=== PATIENT | female | born 1995 | race Caucasian/White ===

== ENCOUNTER 2016-10-13 15:57 | Emergency (ER) | payer OTHER ==
[~2016-10-13] VITALS: Ht 165.1 cm; Wt 70.0 kg
[~2016-10-13 15:57] MED LIST: AMOX875T PO; DIPH25CA PO; HYDR1CRE TOPICAL; IBUP-232 PO; LIDO2GEL11 TOPICAL; ZOFR4TAB3 SL
[2016-10-13 15:59] VITALS: BP 114/69; PULSE 72; RESP 16; TEMP 97.7; O2SAT 97
[2016-10-13] MEDS ORDERED: CEPH-460 PO (18:05)
[2016-10-13] MEDS ORDERED: CIPR-9 PO (18:05)
[2016-10-13] MEDS ORDERED: IBUP800T23 PO (18:05)
--- NOTE | 2016-10-13 18:06 | PD ---
HPI Chief Complaint: Skin Problem Time Seen by Provider: 18:01 Travel History International Travel<30 days: No Contact w/Intl Traveler<30days: No Traveled to known affect area: No History of Present Illness HPI 21-year-old female presents to the emergency Department with complaint of a puncture wound to the bottom of her left heel from stepping on a nail through her shoe a few days ago. She denies fever, chills, nausea, vomiting. Denies paresthesias, loss of sensation, decreased range of motion, decreased strength to the affected extremity. Reports being able to squeeze right drainage from the puncture area. Is not up-to-date on her tetanus vaccination. Has not Taken any medications or tried any treatments to be her symptoms. No known relieving factors. Area is aggravated with walking and palpation. No known allergies. Denies significant past medical history. No other modifying factors or associated signs and symptoms. PFSH Past Medical History Anxiety: Yes Depression: Yes Diabetes: No Diminished Hearing: No Reproductive: Yes (HPV) Immunizations Current: No ?: Not : 1 Para: 1 Miscarriage: 0 Past Surgical History Gynecologic Surgery: Yes (LEEP IUD REMOVED ) Social History Alcohol Use: Yes Tobacco Use: No Substance Use: No Allergies-Medications (Allergen,Severity, Reaction): Coded Allergies: No Known Allergies (Verified , 09/09/16) Reported Meds & Prescriptions Reported Meds & Active Scripts Active Ibuprofen 800 Mg Tab 800 Mg PO Q6HR PRN Cipro (Ciprofloxacin HCl) 500 Mg Tab 500 Mg PO BID 10 Days Keflex (Cephalexin) 500 Mg Cap 500 Mg PO Q6H 10 Days Lidocaine Topical (Lidocaine HCl) 2 % Jel 1 Applic TOPICAL QID Ibuprofen 600 Mg Tab 600 Mg PO Q6H PRN Diphenhydramine (Diphenhydramine HCl) 25 Mg Cap 25 Mg PO Q6H PRN Hydrocortisone Topical 1% Cream 1 Applic TOPICAL BID 5 Days Amoxicillin 875 Mg Tab 875 Mg PO BID Zofran Odt (Ondansetron Odt) 4 Mg Tab 4 Mg SL Q8HR PRN Review of Systems Except as stated in HPI: all other systems reviewed are Neg Physical Exam Narrative GENERAL: Well-nourished, well-developed female patient, in no acute distress; afebrile, [id number] SKIN: Warm and dry. Puncture wound to the bottom of the left heel area that is without erythema, edema, drainage; with tenderness on palpation. Left lower sternal area supple and non-tense with 2+ pedal pulse and sensory intact without erythema or edema. HEAD: Atraumatic. Normocephalic. EYES: Pupils equal and round. No scleral icterus. No injection or drainage. ENT: Mucosa pink and moist. Airway patent. NECK: Trachea midline. CARDIOVASCULAR: Regular rate. RESPIRATORY: No accessory muscle use. GASTROINTESTINAL: Flat. MUSCULOSKELETAL: No obvious deformities. No clubbing. No cyanosis. No edema. NEUROLOGICAL: Awake and alert. Oriented 3. No obvious cranial nerve deficits. Motor grossly within normal limits. Normal speech. PSYCHIATRIC: Appropriate mood and affect; insight and judgment normal. Data Data Last Documented VS Vital Signs Date Time Temp Pulse Resp B/P Pulse Ox O2 Delivery O2 Flow Rate FiO2 10/13/16 15:59 97.7 72 16 114/69 97 Room Air Orders Tetanus/Diphtheria Tox Adult (Tetanus/Di (10/13/16 18:15) MDM Medical Decision Making Medical Screen Exam Complete: Yes Emergency Medical Condition: Yes Medical Record Reviewed: Yes Differential Diagnosis Puncture wound, wound infection, medical clearance, tetanus vaccination Narrative Course 21-year-old female with a puncture wound from a nail to the bottom of her left heel. The areas without signs of infection although the patient says that she has been able to squeeze some purulent drainage from the site. Tetanus updated in the ER. Keflex, ciprofloxacin, ibuprofen prescribed for home. Patient is medically cleared and stable for discharge. Discussed reasons to return to the emergency department. Instructed patient to follow up with primary care provider. Patient agrees with treatment plan. The patients vital signs are stable and the patient is stable for outpatient follow-up and treatment. Patient discharged home, stable and in no acute distress. Diagnosis Primary Impression: Puncture wound of left foot Qualified Code: S91.332A - Puncture wound of left foot, initial encounter Referrals: Primary Care Physician Patient Instructions: General Instructions, Puncture Wound (ED) Departure Forms: Tests/Procedures, Work Release Enter return to work date: Oct 14, 2016 Additional Instructions: Keep area clean and dry Ibuprofen or Tylenol as directed and as needed for pain and inflammation Ice pack to area as needed to decrease pain Follow-up with primary care provider Return to the emergency department immediately with worsening of symptoms, particularly if reddened streaks up or down the affected extremity from the puncture site, fever, numbness/tingling in the affected extremity, loss of sensation in the affected extremity, severe swelling of the affected Med/Other Pt SpecificInfo: Prescription(s) given Scripts Ibuprofen 800 Mg [id number] Mg PO Q6HR PRN (PAIN) #30 TAB Ref 0 Prov:Ivanna Barillas 10/13/16 Ciprofloxacin (Cipro)500 Mg [id number] Mg PO BID 10 Days Ref 0 Prov:Ivanna Barillas 10/13/16 Cephalexin (Keflex)500 Mg [id number] Mg PO Q6H 10 Days Ref 0 Prov:Ivanna Barillas 10/13/16 Disposition: 01 DISCHARGE HOME Condition: Stable Ivanna Barillas Oct 13, 2016 18:06
[2016-10-13] MEDS ORDERED: TETANUS/DIPHTHERIA TOXOID ADULT 0.5 ML VIAL IM ONE (18:15)
== END 2016-10-13 18:30 | disposition home or self-care (01) ==
LOC: NEPB 15:57
DX: S91.332A Puncture wound without foreign body, left foot, initial encounter (principal); W45.0XXA Nail entering through skin, initial encounter; Z23 Encounter for immunization
CPT/HCPCS: 90471; 90714

== ENCOUNTER 2017-01-26 22:58 | Emergency (ER) | payer OTHER ==
[~2017-01-26] VITALS: Ht 165.1 cm; Wt 66.0 kg
[~2017-01-26 22:58] MED LIST changes: +CEPH-460 PO; +CIPR-9 PO; +IBUP800T23 PO
[2017-01-26 23:05] VITALS: BP 107/69; PULSE 73; RESP 14; TEMP 98.2; O2SAT 98
--- NOTE | 2017-01-26 23:43 | PD ---
HPI Chief Complaint: Chest Pain Time Seen by Provider: 23:31 Travel History International Travel<30 days: No Contact w/Intl Traveler<30days: No Traveled to known affect area: No History of Present Illness HPI The patient is a 21-year-old female that complains of chest pain in the anterior portion of her chest along the costochondral junctions and along the rib attachments bilaterally. She has a cough productive of green sputum. She denies any fever or shortness of breath. She states there is a possibility that she might be . She does not smoke. PFSH Past Medical History Anxiety: Yes Depression: Yes Diabetes: No Diminished Hearing: No Reproductive: Yes (HPV) Immunizations Current: No Tetanus Vaccination: Never Vaccinated ?: Unknown LMP: on it now : 1 Para: 1 Miscarriage: 0 Past Surgical History Gynecologic Surgery: Yes (LEEP IUD REMOVED ) Social History Alcohol Use: Yes (occ) Tobacco Use: No Substance Use: No Allergies-Medications (Allergen,Severity, Reaction): Coded Allergies: No Known Allergies (Verified , 01/26/17) Reported Meds & Prescriptions Reported Meds & Active Scripts Active No Active Prescriptions or Reported Medications Review of Systems Except as stated in HPI: all other systems reviewed are Neg Physical Exam Narrative GENERAL: The patient is alert, oriented 3 in no respiratory distress. Her vital signs are normal. SKIN: Focused skin assessment warm/dry. HEAD: Atraumatic. Normocephalic. EYES: Pupils equal and round. No scleral icterus. No injection or drainage. ENT: No nasal bleeding or discharge. Mucous membranes pink and moist. NECK: Trachea midline. No JVD. CARDIOVASCULAR: Regular rate and rhythm. No murmur appreciated. RESPIRATORY: No accessory muscle use. Clear to auscultation. Breath sounds equal bilaterally. GASTROINTESTINAL: Abdomen soft, non-tender, nondistended. Hepatic and splenic margins not palpable. MUSCULOSKELETAL: No obvious deformities. No clubbing. No cyanosis. No edema. NEUROLOGICAL: Awake and alert. No obvious cranial nerve deficits. Motor grossly within normal limits. Normal speech. PSYCHIATRIC: Appropriate mood and affect; insight and judgment normal. Data Data Last Documented VS Vital Signs Date Time Temp Pulse Resp B/P Pulse Ox O2 Delivery O2 Flow Rate FiO2 01/26/17 23:17 99 Room Air 01/26/17 23:05 98.2 73 14 107/69 Orders Complete Blood Count With Diff (01/26/17 23:38) Basic Metabolic Panel (Bmp) (01/26/17 23:38) Beta Hcg (Quant/Titer) (01/26/17 23:38) Chest, Pa & Lat (01/26/17 23:38) Labs Laboratory Tests Test 01/26/17 23:15 White Blood Count 7.9 TH/MM3 Red Blood Count 4.21 MIL/MM3 Hemoglobin 13.3 GM/DL Hematocrit 38.8 % Mean Corpuscular Volume 92.3 FL Mean Corpuscular Hemoglobin 31.6 PG Mean Corpuscular Hemoglobin 34.2 % Concent Red Cell Distribution Width 11.9 % Platelet Count 192 TH/MM3 Mean Platelet Volume 8.3 FL Neutrophils (%) (Auto) 69.8 % Lymphocytes (%) (Auto) 23.1 % Monocytes (%) (Auto) 6.0 % Eosinophils (%) (Auto) 0.6 % Basophils (%) (Auto) 0.5 % Neutrophils # (Auto) 5.6 TH/MM3 Lymphocytes # (Auto) 1.8 TH/MM3 Monocytes # (Auto) 0.5 TH/MM3 Eosinophils # (Auto) 0.0 TH/MM3 Basophils # (Auto) 0.0 TH/MM3 CBC Comment DIFF FINAL Differential Comment Sodium Level 142 MEQ/L Potassium Level 3.5 MEQ/L Chloride Level 108 MEQ/L Carbon Dioxide Level 25.9 MEQ/L Anion Gap 8 MEQ/L Blood Urea Nitrogen 14 MG/DL Creatinine 0.53 MG/DL Estimat Glomerular Filtration 143 ML/MIN Rate Random Glucose 96 MG/DL Calcium Level 8.7 MG/DL Human Chorionic Gonadotropin, LESS THAN 1 Quant MIU/ML MDM Medical Decision Making Medical Screen Exam Complete: Yes Emergency Medical Condition: Yes Medical Record Reviewed: Yes Interpretation(s) The CBC is normal and the basic metabolic profile is normal. The beta-hCG is less than 1. The chest x-ray shows no acute disease. Differential Diagnosis Viral upper respiratory infection, , bronchitis, pneumonia Narrative Course The patient has a viral upper respiratory infection. She has pleuritic pain when she breathes/coughs. Impression: Viral upper respiratory infection, pleurisy Diagnosis Primary Impression: Pleurisy without effusion Med/Other Pt SpecificInfo: Prescription(s) given Scripts Ibuprofen 600 Mg [id number] Mg PO TID #33 TAB Ref 0 Prov:David Palma MD 01/27/17 Disposition: 01 DISCHARGE HOME Condition: Stable David Palma MD January 26, 2017 23:43
[2017-01-27 00:02] LABS: AUTOMATED NEUTROPHIL # 5.6 TH/MM3 (1.8-7.7); BASOPHIL % 0.5 % (0.0-2.0); EOSINOPHIL % 0.6 % (0.0-4.0); HEMATOCRIT 38.8 % (35.0-46.0); HEMO FLAGS DIFF FINAL; LYMPH % 23.1 % (9.0-44.0); LYMPHOCYTE # 1.8 TH/MM3 (1.0-4.8); MEAN CELL VOLUME 92.3 FL (80.0-100.0); MEAN CORPUSCULAR HEMOGLOBIN 31.6 PG (27.0-34.0); MEAN CORPUSCULAR HGB CONC 34.2 % (32.0-36.0); NEUT % 69.8 % (16.0-70.0); PLATELET COUNT 192 TH/MM3 (150-450); RED BLOOD COUNT 4.21 MIL/MM3 (4.00-5.30); RED CELL DISTRIBUTION WIDTH 11.9 % (11.6-17.2); WHITE BLOOD COUNT 7.9 TH/MM3 (4.0-11.0)
[2017-01-27 00:21] LABS: CHLORIDE 108 MEQ/L (98-107); POTASSIUM 3.5 MEQ/L (3.5-5.1); SODIUM (NA) 142 MEQ/L (136-145)
[2017-01-27 00:24] LABS: ANION GAP 8 MEQ/L (5-15); BICARBONATE 25.9 MEQ/L (21.0-32.0); BLOOD UREA NITROGEN 14 MG/DL (7-18)
[2017-01-27 00:28] LABS: GLOMERULAR FILTRATION RATE 143 ML/MIN (>89)
[2017-01-27 00:32] LABS: BETA HCG QUANT LESS THAN 1 MIU/ML (0-5)
--- NOTE | 2017-01-27 00:36 | RADHPO ---
EXAM DATE/TIME: 01/27/2017 00:16 [facility] COMPARISON: No previous studies available for comparison. INDICATIONS : Chest pain for several days. MEDICAL HISTORY : None. SURGICAL HISTORY : None. ENCOUNTER: Initial ACUITY: 4 - 6 days PAIN SCORE: 6/10 LOCATION: Bilateral chest FINDINGS: PA and lateral views of the chest demonstrate the lungs to be symmetrically aerated without evidence of mass, infiltrate or effusion. The cardiomediastinal contours are unremarkable. Osseous structure s are intact. CONCLUSION: No acute disease. oJe Dickens MD on January 27, 2017 at 0:34 Board Certified Radiologist. This report was verified electronically.
[2017-01-27 00:40] VITALS: BP 110/66; PULSE 70; RESP 18; O2SAT 98
[2017-01-27] MEDS ORDERED: IBUP-232 PO (00:54)
[2017-01-27] MEDS ORDERED: IBUPROFEN 600 MG TAB PO ONE (01:00)
[2017-01-27 01:02] VITALS: BP 106/68
== END 2017-01-27 01:08 | disposition home or self-care (01) ==
LOC: PHED 22:58
DX: R09.1 Pleurisy (principal); J06.9 Acute upper respiratory infection, unspecified; B97.89 Other viral agents as the cause of diseases classified elsewhere; R09.3 Abnormal sputum; Z86.59 Personal history of other mental and behavioral disorders; Z87.42 Personal history of other diseases of the female genital tract
CPT/HCPCS: 71020; 80048; 84702; 85025; 99283

== ENCOUNTER 2017-07-07 10:48 | Emergency (ER) | payer OTHER ==
[~2017-07-07] VITALS: Ht 165.1 cm; Wt 66.0 kg
[~2017-07-07 10:48] MED LIST changes: -AMOX875T PO; -CEPH-460 PO; -CIPR-9 PO; -DIPH25CA PO; -HYDR1CRE TOPICAL; -IBUP800T23 PO; -LIDO2GEL11 TOPICAL; -ZOFR4TAB3 SL
[2017-07-07 10:49] VITALS: BP 116/66; PULSE 67; RESP 16; TEMP 98.7; O2SAT 99
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
[2017-07-07] MEDS ORDERED: diphenhydrAMINE HCL 50 MG/ML VIAL IV PUSH ONE (12:30)
[2017-07-07] MEDS ORDERED: METOCLOPRAMIDE HCL 10 MG/2 ML VIAL IV PUSH ONE (12:30)
[2017-07-07] MEDS ORDERED: SODIUM CHLOR 0.9% 1000 ML INJ 1,000 ML IV ONE (12:30)
[2017-07-07] MEDS ORDERED: KETOROLAC TROMETHAMINE 30 MG/ML (IVP) VIAL IV PUSH ONE (12:30)
[2017-07-07 12:39] VITALS: BP 93/55; PULSE 82; RESP 18; O2SAT 100
== END 2017-07-07 14:45 | disposition home or self-care (01) ==
LOC: NEPE 10:48
DX: R51 Headache (principal)
CPT/HCPCS: 84703; 96361; 96374; 96375; 99284; J1200; J1885; J2765; J7030

== ENCOUNTER 2017-08-05 11:00 | Emergency (ER) | payer OTHER ==
[~2017-08-05] VITALS: Ht 165.1 cm; Wt 68.1 kg
[2017-08-05 11:02] VITALS: BP 122/66; PULSE 80; RESP 16; TEMP 98.5; O2SAT 99
[2017-08-05 11:54] VITALS: BP 115/67; PULSE 82; RESP 17; O2SAT 97
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
[2017-08-05 13:10] VITALS: BP 109/62; PULSE 74; RESP 17; TEMP 98.6; O2SAT 97
== END 2017-08-05 14:10 | disposition home or self-care (01) ==
LOC: PHED 11:00
DX: S16.1XXA Strain of muscle, fascia and tendon at neck level, initial encounter (principal); S06.0X0A Concussion without loss of consciousness, initial encounter; X58.XXXA Exposure to other specified factors, initial encounter
CPT/HCPCS: 70450; 72125; 84703; 99285

== ENCOUNTER 2017-08-27 17:31 | Emergency (ER) | payer OTHER ==
[2017-08-27 17:32] VITALS: BP 123/61; PULSE 83; RESP 16; TEMP 98.7; O2SAT 100
--- NOTE | 2017-08-27 18:35 | PD ---
HPI Chief Complaint: Abdominal Pain Time Seen by Provider: 18:17 Travel History International Travel<30 days: No Contact w/Intl Traveler<30days: No Traveled to known affect area: No History of Present Illness HPI The patient was seen and examined in the presence of the nurse. This patient complains of some pelvic cramping. It happened while she was shopping at a store about one hour ago. The pain has resolved. Duration 30 minutes. Severity was moderate. No alleviating factors. No exacerbating factors. She reports that she is . This is confirmed by a home test as well as a test at the crisis center. She has not had any ultrasound. She has not had any follow-up but has an appointment in 2 weeks. No bleeding. PFSH Past Medical History Anxiety: Yes Depression: Yes Diabetes: No Diminished Hearing: No Reproductive: Yes (HPV) Immunizations Current: No ?: LMP: 07/19/2017 : 2 Para: 1 Miscarriage: 0 Past Surgical History Gynecologic Surgery: Yes (LEEP IUD REMOVED; criosurgery(cervix)) Social History Alcohol Use: Yes (occ) Tobacco Use: No Substance Use: No Allergies-Medications (Allergen,Severity, Reaction): Coded Allergies: No Known Allergies (Verified Adverse Reaction, Unknown, 08/05/17) Reported Meds & Prescriptions Reported Meds & Active Scripts Active No Active Prescriptions or Reported Medications Review of Systems General / Constitutional: No: Fever Eyes: No: Visual changes HENT: No: Headaches Cardiovascular: No: Chest Pain or Discomfort Respiratory: No: Shortness of Breath Gastrointestinal: Positive: Abdominal Pain Genitourinary: Positive: Pelvic Pain, No: Dysuria Musculoskeletal: No: Pain Skin: No Rash Neurologic: No: Weakness Psychiatric: No: Depression Endocrine: No: Polydipsia Hematologic/Lymphatic: No: Easy Bruising Physical Exam Narrative GENERAL: Well-nourished, well-developed patient in no apparent distress. SKIN: Focused skin assessment reveals no rash and nodules. Skin is Warm and dry. HEAD: Atraumatic. Normocephalic. EYES: Pupils equal and round. No scleral icterus. No injection or drainage. ENT: No nasal bleeding or discharge. Mucous membranes pink and moist. NECK: Trachea midline. No JVD. CARDIOVASCULAR: Regular rate and rhythm. No murmur appreciated. RESPIRATORY: No accessory muscle use. Clear to auscultation. Breath sounds equal bilaterally. GASTROINTESTINAL: Abdomen soft, non-tender, nondistended. Hepatic and splenic margins not palpable. MUSCULOSKELETAL: No obvious deformities. No clubbing. No cyanosis. No edema. NEUROLOGICAL: Awake and alert. No obvious cranial nerve deficits. Motor grossly within normal limits. Normal speech. PSYCHIATRIC: Appropriate mood and affect; insight and judgment normal. Pelvic: Cervix is closed with no motion tenderness. No blood or discharge in the vault Data Data Last Documented VS Vital Signs Date Time Temp Pulse Resp B/P (MAP) Pulse Ox O2 Delivery O2 Flow Rate FiO2 08/27/17 18:24 16 08/27/17 17:32 98.7 83 123/61 (81) 100 Orders Orders Complete Blood Count With Diff (08/27/17 17:49) Comprehensive Metabolic Panel (08/27/17 17:49) Beta Hcg (Quant/Titer) (08/27/17 18:31) Ed Discharge Order (08/27/17 20:16) Labs Laboratory Tests Test 08/27/17 18:05 08/27/17 18:40 White Blood Count 7.0 TH/MM3 Red Blood Count 4.15 MIL/MM3 Hemoglobin 13.6 GM/DL Hematocrit 38.7 % Mean Corpuscular Volume 93.3 FL Mean Corpuscular Hemoglobin 32.8 PG Mean Corpuscular Hemoglobin Concent 35.2 % Red Cell Distribution Width 12.5 % Platelet Count 219 TH/MM3 Mean Platelet Volume 8.2 FL Neutrophils (%) (Auto) 67.3 % Lymphocytes (%) (Auto) 25.6 % Monocytes (%) (Auto) 5.8 % Eosinophils (%) (Auto) 0.7 % Basophils (%) (Auto) 0.6 % Neutrophils # (Auto) 4.7 TH/MM3 Lymphocytes # (Auto) 1.8 TH/MM3 Monocytes # (Auto) 0.4 TH/MM3 Eosinophils # (Auto) 0.0 TH/MM3 Basophils # (Auto) 0.0 TH/MM3 CBC Comment DIFF FINAL Differential Comment Blood Urea Nitrogen 12 MG/DL Creatinine 0.47 MG/DL Random Glucose 100 MG/DL Total Protein 7.7 GM/DL Albumin 4.0 GM/DL Calcium Level 8.5 MG/DL Alkaline Phosphatase 54 U/L Aspartate Amino Transf (AST/SGOT) 13 U/L Alanine Aminotransferase (ALT/SGPT) 18 U/L Total Bilirubin 0.2 MG/DL Sodium Level 141 MEQ/L Potassium Level 3.4 MEQ/L Chloride Level 108 MEQ/L Carbon Dioxide Level 24.6 MEQ/L Anion Gap 8 MEQ/L Estimat Glomerular Filtration Rate 163 ML/MIN Human Chorionic Gonadotropin, Quant 415 MIU/ML MDM Medical Decision Making Medical Screen Exam Complete: Yes Emergency Medical Condition: Yes Medical Record Reviewed: Yes Differential Diagnosis Ectopic, miscarriage, nonspecific pelvic cramping Narrative Course I have reviewed the patient's electronic medical record. CBC is normal Beta hCG is 400 I did a bedside transabdominal ultrasound. I cannot identify an intrauterine fetus. Had a lengthy discussion with the patient. She has appointment for care in a couple of weeks. I've advised her to call that OB physician tomorrow and see if they will see her in the next 2-3 days for repeat beta hCG and evaluation. If they will not then she will have to come back here for repeat beta in 3 days to ensure that is doubled properly. She may be having a miscarriage. We discussed that we cannot rule out ectopic based on this. I have low clinical suspicion at this point. She has soft benign nontender abdomen and is basically asymptomatic If she develops worse pain or bleeding she will return promptly We discussed pelvic rest and ectopic precautions at length Diagnosis Primary Impression: Pelvic pain affecting in first trimester, antepartum Additional Instructions: Use pelvic rest and ectopic precautions Return for significant worsening of pain or bleeding Follow-up with OB physician Return here in 3 days for follow-up beta hCG if your physician will not see you Med/Other Pt SpecificInfo: Other Scripts No Active Prescriptions or Reported Meds Disposition: DISCHARGE HOME Condition: Stable Milton Santana MD Aug 27, 2017 18:35
[2017-08-27 18:40] LABS: AUTOMATED NEUTROPHIL # 4.7 TH/MM3 (1.8-7.7); BASOPHIL % 0.6 % (0.0-2.0); EOSINOPHIL % 0.7 % (0.0-4.0); HEMATOCRIT 38.7 % (35.0-46.0); HEMO FLAGS DIFF FINAL; LYMPH % 25.6 % (9.0-44.0); LYMPHOCYTE # 1.8 TH/MM3 (1.0-4.8); MEAN CELL VOLUME 93.3 FL (80.0-100.0); MEAN CORPUSCULAR HEMOGLOBIN 32.8 PG (27.0-34.0); MEAN CORPUSCULAR HGB CONC 35.2 % (32.0-36.0); MONO % 5.8 % (0.0-8.0); NEUT % 67.3 % (16.0-70.0); PLATELET COUNT 219 TH/MM3 (150-450); RED BLOOD COUNT 4.15 MIL/MM3 (4.00-5.30); RED CELL DISTRIBUTION WIDTH 12.5 % (11.6-17.2)
[2017-08-27 18:58] LABS: ANION GAP 8 MEQ/L (5-15); AST (GOT) 13 U/L (15-37); BICARBONATE 24.6 MEQ/L (21.0-32.0); BLOOD UREA NITROGEN 12 MG/DL (7-18); CHLORIDE 108 MEQ/L (98-107); GLOMERULAR FILTRATION RATE 163 ML/MIN (>89); POTASSIUM 3.4 MEQ/L (3.5-5.1); SODIUM (NA) 141 MEQ/L (136-145)
[2017-08-27 19:01] LABS: ALKALINE PHOSPHATASE 54 U/L (45-117); ALT (GPT) 18 U/L (10-53); TOTAL BILIRUBIN ADULT 0.2 MG/DL (0.2-1.0)
[2017-08-27 19:26] LABS: BETA HCG QUANT 415 MIU/ML (0-5)
== END 2017-08-27 21:45 | disposition home or self-care (01) ==
LOC: NEPD 17:31
DX: O26.891 Other specified pregnancy related conditions, first trimester (principal); R10.2 Pelvic and perineal pain; O99.341 Other mental disorders complicating pregnancy, first trimester; F41.9 Anxiety disorder, unspecified; F32.9 Major depressive disorder, single episode, unspecified
CPT/HCPCS: 80053; 84702; 85025; 99284

== ENCOUNTER 2017-08-29 14:30 | Emergency (ER) | payer OTHER ==
[~2017-08-29] VITALS: Ht 165.1 cm; Wt 67.0 kg
[2017-08-29 14:39] VITALS: BP 112/70; PULSE 71; RESP 18; TEMP 98.9; O2SAT 95
[2017-08-29 16:01] LABS: BILIRUBIN, URINE NEG (NEG); BLOOD, URINE LARGE (NEG); GLUCOSE,URINE NEG (NEG); KETONE, URINE NEG (NEG); NITRITE,URINE NEG (NEG); PH, URINE 5.5 (5.0-8.5); URINE LEUKOCYTE ESTERASE NEG (NEG)
[2017-08-29 16:08] LABS: URINE COLOR YELLOW (YELLW/STRAW)
--- NOTE | 2017-08-29 16:08 | PD ---
HPI Chief Complaint: Community Nurse Problem/Complaint Time Seen by Provider: 15:43 Travel History International Travel<30 days: No Contact w/Intl Traveler<30days: No Traveled to known affect area: No History of Present Illness HPI 22-year-old female complains of vaginal spotting. Patient is 2 para 1. Patient is 5 weeks by date. Patient was seen in emergency room 2 days ago for pelvic pain. Beta-HCG done at that time which was 415. Patient was advised to follow-up local physician and OB clinic. Patient states that the pelvic pain resolved completely. Patient started having small amounts of vaginal spotting this morning. Patient also complains of urinary frequencies today. Patient denies any fever chills. Patient denies any back pain. Patient 's blood type A negative. PFSH Past Medical History Anxiety: Yes Depression: Yes Diabetes: No Diminished Hearing: No Reproductive: Yes (HPV) Immunizations Current: No Tetanus Vaccination: < 5 Years Influenza Vaccination: No ?: LMP: 07/19/17 : 2 Para: 1 Miscarriage: 0 Past Surgical History Gynecologic Surgery: Yes (LEEP IUD REMOVED; criosurgery(cervix)) Social History Alcohol Use: Yes (occ) Tobacco Use: No Substance Use: No Allergies-Medications (Allergen,Severity, Reaction): Coded Allergies: No Known Allergies (Verified Adverse Reaction, Unknown, 08/29/17) Reported Meds & Prescriptions Reported Meds & Active Scripts Active No Active Prescriptions or Reported Medications Review of Systems General / Constitutional: No: Fever Eyes: No: Visual changes HENT: No: Headaches Cardiovascular: No: Chest Pain or Discomfort Respiratory: No: Shortness of Breath Gastrointestinal: No: Abdominal Pain Genitourinary: Positive: Vaginal Bleeding, No: Dysuria Musculoskeletal: No: Pain Skin: No Rash Neurologic: No: Weakness Psychiatric: No: Depression Endocrine: No: Polydipsia Hematologic/Lymphatic: No: Easy Bruising Physical Exam Narrative GENERAL: Well-nourished, well-developed patient. SKIN: Focused skin assessment warm/dry. HEAD: Normocephalic. EYES: No scleral icterus. No injection or drainage. NECK: Supple, trachea midline. No JVD or lymphadenopathy. CARDIOVASCULAR: Regular rate and rhythm without murmurs, gallops, or rubs. RESPIRATORY: Breath sounds equal bilaterally. No accessory muscle use. GASTROINTESTINAL: Abdomen soft, non-tender, nondistended. MUSCULOSKELETAL: No cyanosis, or edema. BACK: Nontender without obvious deformity. No CVA tenderness. Data Data Last Documented VS Vital Signs Date Time Temp Pulse Resp B/P (MAP) Pulse Ox O2 Delivery O2 Flow Rate FiO2 08/29/17 14:39 98.9 71 18 112/70 (84) 95 Orders Orders Urinalysis - C+S If Indicated (08/29/17 15:52) Beta Hcg (Quant/Titer) (08/29/17 15:52) Iv Access Insert/Monitor (08/29/17 15:52) Complete Rh (08/29/17 16:08) Rhogam Only (08/29/17 16:08) Labs Laboratory Tests Test 08/29/17 15:55 08/29/17 16:00 Urine Color YELLOW Urine Turbidity CLEAR Urine pH 5.5 Urine Specific [place] 1.010 Urine Protein NEG mg/dL Urine Glucose (UA) NEG mg/dL Urine Ketones NEG mg/dL Urine Occult Blood LARGE Urine Nitrite NEG Urine Bilirubin NEG Urine Leukocyte Esterase NEG Urine RBC 0-3 /hpf Urine Squamous Epithelial Cells 0-5 /hpf Urine Bacteria NONE /hpf Microscopic Urinalysis Comment CULT NOT INDICATED Human Chorionic Gonadotropin, Quant 386 MIU/ML MDM Medical Decision Making Medical Screen Exam Complete: Yes Emergency Medical Condition: Yes Medical Record Reviewed: Yes Interpretation(s) 1656 PM. UA is negative. Beta-hCG 386. Differential Diagnosis Differential diagnosis including threatened AB, incomplete AB, completed AB, ectopic . Narrative Course 32-year-old female with vaginal spotting today. Patient was seen in emergency room 2 days ago for pelvic pain. Beta-hCG 415 at that time. Patient's blood type A negative. RhoGAM given. Diagnosis Primary Impression: Threatened Patient Instructions: General Instructions Additional Instructions: Follow-up with local [facility] OPERATOR. Return if increased abdominal pelvic pain, vaginal bleeding. Med/Other Pt SpecificInfo: No Meds Exist/No RX given Scripts No Active Prescriptions or Reported Meds Disposition: 01 DISCHARGE HOME Condition: Kenneth Martinez MD Aug 29, 2017 16:07
[2017-08-29 16:09] LABS: RBC, URINE 0-3 /hpf (0-3); SQUAMOUS EPITHELIAL CELL URINE 0-5 /hpf (0-5)
[2017-08-29 18:43] VITALS: BP 118/65; TEMP 99
== END 2017-08-29 18:51 | disposition home or self-care (01) ==
LOC: PHED 14:30
DX: O20.0 Threatened abortion (principal); Z3A.01 Less than 8 weeks gestation of pregnancy
CPT/HCPCS: 81001; 84702; 90384; 96372; 99283; J2790

== ENCOUNTER 2017-09-04 14:24 | Emergency (ER) | payer OTHER ==
[~2017-09-04] VITALS: Ht 165.1 cm; Wt 68.0 kg
[2017-09-04 14:32] VITALS: BP 117/72; PULSE 72; RESP 18; TEMP 98.7; O2SAT 96
[2017-09-04] MEDS ORDERED: SODIUM CHLOR 0.9% 1000 ML INJ 1,000 ML IV ONE (14:49)
[2017-09-04] MEDS ORDERED: SODIUM CHLORIDE 0.9% FLUSH 10 ML FLUSH IVF PRN (15:00)
[2017-09-04 15:15] VITALS: O2SAT 96
[2017-09-04 15:28] LABS: BILIRUBIN, URINE NEG (NEG); BLOOD, URINE LARGE (NEG); GLUCOSE,URINE NEG (NEG); KETONE, URINE NEG (NEG); NITRITE,URINE NEG (NEG); URINE LEUKOCYTE ESTERASE NEG (NEG)
[2017-09-04 15:30] LABS: AUTOMATED NEUTROPHIL # 4.9 TH/MM3 (1.8-7.7); BASOPHIL % 0.4 % (0.0-2.0); EOSINOPHIL # 0.1 TH/MM3 (0-0.4); EOSINOPHIL % 0.9 % (0.0-4.0); HEMATOCRIT 39.7 % (35.0-46.0); HEMOGLOBIN 13.1 GM/DL (11.6-15.3); LYMPH % 23.8 % (9.0-44.0); LYMPHOCYTE # 1.6 TH/MM3 (1.0-4.8); MEAN CELL VOLUME 93.9 FL (80.0-100.0); MEAN PLATELET VOLUME 7.8 FL (7.0-11.0); MONO % 4.8 % (0.0-8.0); MONOCYTE # 0.3 TH/MM3 (0-0.9); NEUT % 70.1 % (16.0-70.0); PLATELET COUNT 239 TH/MM3 (150-450); RED BLOOD COUNT 4.22 MIL/MM3 (4.00-5.30); RED CELL DISTRIBUTION WIDTH 12.1 % (11.6-17.2); WHITE BLOOD COUNT 6.9 TH/MM3 (4.0-11.0)
[2017-09-04 15:35] LABS: CHLORIDE 106 MEQ/L (98-107); SODIUM (NA) 140 MEQ/L (136-145)
[2017-09-04 15:38] LABS: CALCIUM 8.4 MG/DL (8.5-10.1)
[2017-09-04 15:39] LABS: ALBUMIN 3.7 GM/DL (3.4-5.0); BICARBONATE 25.3 MEQ/L (21.0-32.0); BLOOD UREA NITROGEN 14 MG/DL (7-18); GLUCOSE,RANDOM 89 MG/DL (74-106); MAGNESIUM 2.1 MG/DL (1.5-2.5)
[2017-09-04 15:40] LABS: URINE COLOR YELLOW (YELLW/STRAW)
[2017-09-04 15:41] LABS: RBC, URINE 0-3 /hpf (0-3); SQUAMOUS EPITHELIAL CELL URINE 0-5 /hpf (0-5); WBC, URINE 0-2 /hpf (0-5)
[2017-09-04 15:42] LABS: ALT (GPT) 28 U/L (10-53); AST (GOT) 19 U/L (15-37); CREATININE 0.56 MG/DL (0.50-1.00); GLOMERULAR FILTRATION RATE 133 ML/MIN (>89)
[2017-09-04 15:43] LABS: TOTAL BILIRUBIN ADULT 0.2 MG/DL (0.2-1.0); TOTAL PROTEIN 7.3 GM/DL (6.4-8.2)
--- NOTE | 2017-09-04 15:43 | PD ---
HPI Chief Complaint: General Weakness Time Seen by Provider: 14:38 Travel History International Travel<30 days: No Contact w/Intl Traveler<30days: No Traveled to known affect area: No History of Present Illness HPI this is a 22-year-old female who complains of paresthesias involving the soles of the feet. She reports undergoing a miscarriage over the past 3 days. She has been [facility] She's had no gross hemorrhage she does report sensation of fatigue. She denies drug or alcohol abuse. She notes drinking coffee in excess to having quit about a month and a half ago. She reports occasional marijuana smoking however denies any recently. No drug or alcohol abuse otherwise [facility] Past Medical History Anxiety: Yes Depression: Yes Diabetes: No Diminished Hearing: No Reproductive: Yes (HPV) Immunizations Current: No Tetanus Vaccination: < 5 Years Influenza Vaccination: No ?: LMP: 07/19/2017 : 2 Para: 1 Miscarriage: 0 Past Surgical History Gynecologic Surgery: Yes (LEEP IUD REMOVED; criosurgery(cervix)) Social History Alcohol Use: No Tobacco Use: No Substance Use: No Allergies-Medications (Allergen,Severity, Reaction): Coded Allergies: No Known Allergies (Verified Adverse Reaction, Unknown, 09/04/17) Reported Meds & Prescriptions Reported Meds & Active Scripts Active No Active Prescriptions or Reported Medications Review of Systems Except as stated in HPI: all other systems reviewed are Neg General / Constitutional: No: Fever Physical Exam Narrative GENERAL: 22-year-old female pleasant well-nourished well-developed SKIN: Warm and dry. HEAD: Atraumatic. Normocephalic. EYES: Pupils equal and round. No scleral icterus. No injection or drainage. ENT: No nasal bleeding or discharge. Mucous membranes pink and moist. NECK: Trachea midline. No JVD. CARDIOVASCULAR: Regular rate and rhythm. RESPIRATORY: No accessory muscle use. Clear to auscultation. Breath sounds equal bilaterally. GASTROINTESTINAL: Abdomen soft, non-tender, nondistended. Hepatic and splenic margins not palpable. MUSCULOSKELETAL: Extremities without clubbing, cyanosis, or edema. No obvious deformities. NEUROLOGICAL: Sensation intact throughout. Motor function intact throughout. Cranial nerves II through XII normal. Speech memory mentation normal PSYCHIATRIC: Appropriate mood and affect; insight and judgment normal. Data Data Last Documented VS Vital Signs Date Time Temp Pulse Resp B/P (MAP) Pulse Ox O2 Delivery O2 Flow Rate FiO2 09/04/17 15:15 96 Room Air 09/04/17 14:32 98.7 72 18 117/72 (87) Vital signs reviewed Orders Orders Complete Blood Count With Diff (09/04/17 14:49) Comprehensive Metabolic Panel (09/04/17 14:49) Magnesium (Mg) (09/04/17 14:49) Urinalysis - C+S If Indicated (09/04/17 14:49) Ecg Monitoring (09/04/17 14:49) Iv Access Insert/Monitor (09/04/17 14:49) Oximetry (09/04/17 14:49) Sodium Chloride 0.9% Flush (Ns Flush) (09/04/17 15:00) Sodium Chlor 0.9% 1000 Ml Inj (Ns 1000 M (09/04/17 14:49) Beta Hcg (Quant/Titer) (09/04/17 14:49) Ed Discharge Order (09/04/17 15:57) Labs Laboratory Tests Test 09/04/17 15:10 09/04/17 15:15 Urine Color YELLOW Urine Turbidity CLEAR Urine pH 6.0 Urine Specific [place] 1.017 Urine Protein NEG mg/dL Urine Glucose (UA) NEG mg/dL Urine Ketones NEG mg/dL Urine Occult Blood LARGE Urine Nitrite NEG Urine Bilirubin NEG Urine Leukocyte Esterase NEG Urine RBC 0-3 /hpf Urine WBC 0-2 /hpf Urine Squamous Epithelial Cells 0-5 /hpf Microscopic Urinalysis Comment CULT NOT INDICATED White Blood Count 6.9 TH/MM3 Red Blood Count 4.22 MIL/MM3 Hemoglobin 13.1 GM/DL Hematocrit 39.7 % Mean Corpuscular Volume 93.9 FL Mean Corpuscular Hemoglobin 31.0 PG Mean Corpuscular Hemoglobin Concent 33.0 % Red Cell Distribution Width 12.1 % Platelet Count 239 TH/MM3 Mean Platelet Volume 7.8 FL Neutrophils (%) (Auto) 70.1 % Lymphocytes (%) (Auto) 23.8 % Monocytes (%) (Auto) 4.8 % Eosinophils (%) (Auto) 0.9 % Basophils (%) (Auto) 0.4 % Neutrophils # (Auto) 4.9 TH/MM3 Lymphocytes # (Auto) 1.6 TH/MM3 Monocytes # (Auto) 0.3 TH/MM3 Eosinophils # (Auto) 0.1 TH/MM3 Basophils # (Auto) 0.0 TH/MM3 CBC Comment DIFF FINAL Differential Comment Blood Urea Nitrogen 14 MG/DL Creatinine 0.56 MG/DL Random Glucose 89 MG/DL Total Protein 7.3 GM/DL Albumin 3.7 GM/DL Calcium Level 8.4 MG/DL Magnesium Level 2.1 MG/DL Alkaline Phosphatase 51 U/L Aspartate Amino Transf (AST/SGOT) 19 U/L Alanine Aminotransferase (ALT/SGPT) 28 U/L Total Bilirubin 0.2 MG/DL Sodium Level 140 MEQ/L Potassium Level 3.8 MEQ/L Chloride Level 106 MEQ/L Carbon Dioxide Level 25.3 MEQ/L Estimat Glomerular Filtration Rate 133 ML/MIN Human Chorionic Gonadotropin, Quant 12 MIU/ML [facility] Medical Decision Making Medical Screen Exam Complete: Yes Emergency Medical Condition: Yes Medical Record Reviewed: Yes Differential Diagnosis Electrolyte imbalance, anemia, anxiety Narrative Course CBC & BMP Diagram 09/04/17 15:15 Total Protein 7.3, Albumin 3.7, Calcium Level 8.4 L, Magnesium Level 2.1, Alkaline Phosphatase 51, Aspartate Amino Transf (AST/SGOT) 19, Alanine Aminotransferase (ALT/SGPT) 28, Total Bilirubin 0.2 UA: hematuria Beta 12 Blood type is A-. The patient reports undergoing Rogaine shots routinely. Her workup here today is unremarkable. She is a well-appearing and healthy 22-year- old female today's presentation is not considered to be in keeping with a stroke or any true neurologic emergency. Ongoing follow-up with obstetrics advised. Patient satisfied with results of evaluation. Diagnosis Primary Impression: Paresthesia Additional Impression: Miscarriage Referrals: Contact Agent 2 days Med/Other Pt SpecificInfo: No Change to Meds Scripts No Active Prescriptions or Reported Meds Disposition: DISCHARGE HOME Condition: Stable Ced Rondon MD Sep 04, 2017 15:43
[2017-09-04 15:45] LABS: ALKALINE PHOSPHATASE 51 U/L (45-117)
[2017-09-04 16:36] VITALS: BP 124/67
== END 2017-09-04 16:41 | disposition home or self-care (01) ==
LOC: PHED 14:24
DX: O03.9 Complete or unspecified spontaneous abortion without complication (principal); R20.2 Paresthesia of skin; F32.9 Major depressive disorder, single episode, unspecified; F12.90 Cannabis use, unspecified, uncomplicated
CPT/HCPCS: 80053; 81001; 83735; 84702; 85025; 96360; 99284; J7030

== ENCOUNTER 2017-09-22 21:07 | Emergency (ER) | payer OTHER ==
[~2017-09-22] VITALS: Ht 165.1 cm; Wt 69.5 kg
[2017-09-22 21:13] VITALS: BP 127/67; PULSE 86; RESP 16; TEMP 98.6; O2SAT 99
--- NOTE | 2017-09-22 21:39 | PD ---
HPI Chief Complaint: ENT Complaint Time Seen by Provider: 21:22 Travel History International Travel<30 days: No Contact w/Intl Traveler<30days: No Traveled to known affect area: No History of Present Illness HPI 22-year-old female complains of scratchy throat, diarrhea. Patient started having scratchy throat yesterday. Patient states that she started having diarrhea today. Patient states that she has some mild cramping left lower quadrant abdomen today. Patient denies any headache. Patient denies any chest pain or shortness of breath. Patient denies dysuria or frequency. Patient denies any vaginal discharge or bleeding. Patient denies any fever chills. PFSH Past Medical History Anxiety: Yes Depression: Yes Diabetes: No Diminished Hearing: No Reproductive: Yes (HPV) Immunizations Current: No ?: Unknown : 2 Para: 1 Miscarriage: 0 Past Surgical History Gynecologic Surgery: Yes (LEEP IUD REMOVED; criosurgery(cervix)) Social History Alcohol Use: No Tobacco Use: No Substance Use: No Allergies-Medications (Allergen,Severity, Reaction): Coded Allergies: No Known Allergies (Verified Adverse Reaction, Unknown, 09/22/17) Reported Meds & Prescriptions Reported Meds & Active Scripts Active No Active Prescriptions or Reported Medications Review of Systems General / Constitutional: No: Fever Eyes: No: Visual changes HENT: No: Headaches Cardiovascular: No: Chest Pain or Discomfort Respiratory: No: Shortness of Breath Gastrointestinal: Positive: Diarrhea, No: Abdominal Pain Genitourinary: No: Dysuria Musculoskeletal: No: Pain Skin: No Rash Neurologic: No: Weakness Psychiatric: No: Depression Endocrine: No: Polydipsia Hematologic/Lymphatic: No: Easy Bruising Physical Exam Narrative GENERAL: Well-nourished, well-developed patient. SKIN: Focused skin assessment warm/dry. HEAD: Normocephalic. EYES: No scleral icterus. No injection or drainage. TM: Clear. Throat: Mild erythematous. NECK: Supple, trachea midline. No JVD or lymphadenopathy. CARDIOVASCULAR: Regular rate and rhythm without murmurs, gallops, or rubs. RESPIRATORY: Breath sounds equal bilaterally. No accessory muscle use. GASTROINTESTINAL: Abdomen soft, non-tender, nondistended. MUSCULOSKELETAL: No cyanosis, or edema. BACK: Nontender without obvious deformity. No CVA tenderness. Data Data Last Documented VS Vital Signs Date Time Temp Pulse Resp B/P (MAP) Pulse Ox O2 Delivery O2 Flow Rate FiO2 09/22/17 21:13 98.6 86 16 127/67 (87) 99 MDM Medical Decision Making Medical Screen Exam Complete: Yes Emergency Medical Condition: Yes Differential Diagnosis Differential diagnosis including viral syndrome, gastroenteritis, pharyngitis. Narrative Course 22-year-old female with scratches throat yesterday and diarrhea today. Examination is benign. Vital signs stable. Diagnosis Primary Impression: Viral syndrome Patient Instructions: General Instructions Additional Instructions: [id number] Imodium as needed for diarrhea. Follow-up with personal physician. Return if persistent problem or worse. Med/Other Pt SpecificInfo: No Meds Exist/No RX given Scripts No Active Prescriptions or Reported Meds Disposition: 01 DISCHARGE HOME Condition: Stable Kenneth Lomax MD Sep 22, 2017 21:39
== END 2017-09-22 21:57 | disposition home or self-care (01) ==
LOC: PHED 21:07
DX: B34.9 Viral infection, unspecified (principal); R19.7 Diarrhea, unspecified; F32.9 Major depressive disorder, single episode, unspecified; F41.9 Anxiety disorder, unspecified
CPT/HCPCS: 99282

== ENCOUNTER 2017-10-03 10:19 | Emergency (ER) | payer OTHER ==
[~2017-10-03] VITALS: Ht 165.1 cm; Wt 67.1 kg
[2017-10-03 10:31] VITALS: BP 120/69; PULSE 72; RESP 16; TEMP 98.4; O2SAT 100
[2017-10-03] MEDS ORDERED: ZOLO50TA PO (11:24)
[2017-10-03] MEDS ORDERED: LORazepam 0.5 MG TAB PO ONE (11:45)
--- NOTE | 2017-10-03 11:53 | PD ---
HPI Chief Complaint: Chest Pain Time Seen by Provider: 11:21 Travel History International Travel<30 days: No Contact w/Intl Traveler<30days: No Traveled to known affect area: No History of Present Illness HPI The patient's 22 years old and arrives complaining of insomnia for the past month especially worse over the past week. She reports initiating Zoloft 2 days prior. She attributes insomnia to personal stress. She reports crying throughout most of the day and the hearing voices. She denies suicidal and homicidal ideation. She reports the auditory hallucinations do not suggest reports self or others. She denies drug or alcohol abuse however does smoke marijuana up until a few weeks prior. Location neuropsychiatric. Timing constant. PFSH Past Medical History Anxiety: Yes Depression: Yes Diabetes: No Diminished Hearing: No Reproductive: Yes (HPV) Immunizations Current: No Tetanus Vaccination: < 5 Years Influenza Vaccination: No ?: Not LMP: 1 week : 2 Para: 1 Miscarriage: 0 Past Surgical History Gynecologic Surgery: Yes (LEEP IUD REMOVED; criosurgery(cervix)) Social History Alcohol Use: No Tobacco Use: No Substance Use: No Allergies-Medications (Allergen,Severity, Reaction): Coded Allergies: No Known Allergies (Unverified , 10/03/17) Reported Meds & Prescriptions Reported Meds & Active Scripts Active Unisom Sleep Aid (Doxylamine Succinate) 25 Mg Tablet 1 Tab PO HS 10 Days Reported Zoloft (Sertraline HCl) 50 Mg Tab 50 Mg PO DAILY Review of Systems Except as stated in HPI: all other systems reviewed are Neg General / Constitutional: No: Fever Psychiatric: Positive: Anxiety, Depression, No: Suicidal Ideations Physical Exam Narrative GENERAL: 22 yo F, WNWD, pleasant SKIN: Warm and dry. HEAD: Atraumatic. Normocephalic. EYES: Pupils equal and round. No scleral icterus. No injection or drainage. ENT: No nasal bleeding or discharge. Mucous membranes pink and moist. NECK: Trachea midline. No JVD. CARDIOVASCULAR: Regular rate and rhythm. RESPIRATORY: No accessory muscle use. Clear to auscultation. Breath sounds equal bilaterally. GASTROINTESTINAL: Abdomen soft, non-tender, nondistended. Hepatic and splenic margins not palpable. MUSCULOSKELETAL: Extremities without clubbing, cyanosis, or edema. No obvious deformities. NEUROLOGICAL: Awake and alert. No obvious cranial nerve deficits. Motor grossly within normal limits. Five out of 5 muscle strength in the arms and legs. Normal speech. PSYCHIATRIC: No apparent response to internal stimulus. No HI/SI. Data Data Last Documented VS Vital Signs Date Time Temp Pulse Resp B/P (MAP) Pulse Ox O2 Delivery O2 Flow Rate FiO2 10/03/17 12:22 81 16 110/76 (87) 97 10/03/17 10:31 98.4 VS reviewed Orders Orders Lorazepam (Ativan) (10/03/17 11:45) Electrocardiogram (10/03/17 10:42) Ed Discharge Order (10/03/17 12:07) [facility] Medical Decision Making Medical Screen Exam Complete: Yes Emergency Medical Condition: Yes Medical Record Reviewed: Yes Differential Diagnosis Altered mental status/psychosis due to infection/environmental exposure/ metabolic abnormality, polypharmacy, alcohol abuse/intoxication, illicit or prescribed drug abuse, malingering/secondary gain, non-organic psychiatric disease Narrative Course This case was discussed with the patient's primary care provider Dr. Patricio who knew her well and reports that she visits frequently and that anxiety and insomnia and generally difficult social/psychological scenario is well established. The patient has been less not considered to be a true rigors to herself or others. In this scenario initiation of [id number] insomnia medications are considered reasonable with a plan to follow up with psychiatry. Discontinuation of Zoloft advised. Diagnosis Primary Impression: Insomnia Qualified Codes: G47.00 - Insomnia, unspecified Referrals: Psychiatrist 2 days Med/Other Pt SpecificInfo: Prescription(s) given Scripts Doxylamine Succinate (Unisom Sleep Aid) 25 Mg Tablet 1 TAB PO HS for 10 Days Prov: Ced Rondon MD 10/03/17 Disposition: 01 DISCHARGE HOME Condition: Stable Ced Rondon MD Oct 03, 2017 11:53
[2017-10-03] MEDS ORDERED: UNIS25TA3 PO (12:07)
[2017-10-03 12:22] VITALS: BP 110/76
--- NOTE | 2017-10-03 12:55 | EKG ---
Date Performed: 10/03/2017 Time Performed: 10:42:34 PTAGE: 22 years EKG: SINUS BRADYCARDIA BORDERLINE ECG NO PREVIOUS TRACING DOCTOR: Crow Gallegos Interpretating Date/Time 10/03/2017 12:54:40
== END 2017-10-03 12:24 | disposition home or self-care (01) ==
LOC: PHED 10:19
DX: G47.00 Insomnia, unspecified (principal); R94.31 Abnormal electrocardiogram [ECG] [EKG]; R44.0 Auditory hallucinations
CPT/HCPCS: 93005; 99283

== ENCOUNTER 2017-10-27 08:30 | Emergency (ER) | payer OTHER ==
[~2017-10-27] VITALS: Ht 165.1 cm; Wt 68.8 kg
[~2017-10-27 08:30] MED LIST changes: -IBUP-232 PO; +UNIS25TA3 PO; +ZOLO50TA PO
[2017-10-27 08:40] VITALS: BP 113/60; PULSE 72; RESP 16; TEMP 98.4; O2SAT 98
--- NOTE | 2017-10-27 09:22 | PD ---
HPI . Pelvic pain Chief Complaint: [employer] Problem/Complaint Time Seen by Provider: 09:02 Travel History International Travel<30 days: No Contact w/Intl Traveler<30days: No Traveled to known affect area: No History of Present Illness HPI This patient presents with pelvic pain associated with her menstrual cycle. Onset was 4 days ago. Pain is exacerbated by walking. She states that she feels very weak between her legs. She rates her pain as 4/10. PFSH Past Medical History Anxiety: Yes Depression: Yes Diabetes: No Diminished Hearing: No Reproductive: Yes (HPV) Immunizations Current: No ?: Not LMP: 10/23/2017-NOW : 2 Para: 1 Miscarriage: 0 Past Surgical History Gynecologic Surgery: Yes (LEEP IUD REMOVED; criosurgery(cervix)) Social History Alcohol Use: No Tobacco Use: No Substance Use: Yes (Occ. marijuana) Allergies-Medications (Allergen,Severity, Reaction): Coded Allergies: No Known Allergies (Unverified , 10/27/17) Reported Meds & Prescriptions Reported Meds & Active Scripts Active Reported Zoloft (Sertraline HCl) 50 Mg Tab 50 Mg PO DAILY Review of Systems Except as stated in HPI: all other systems reviewed are Neg Genitourinary: Positive: Pelvic Pain, Vaginal Bleeding Musculoskeletal: Positive: Weakness Physical Exam Narrative GENERAL: Patient is lying on the bed speaking in a very quiet voice. She is a little bit whiny. SKIN: warm/dry. Good color and turgor. HEAD: Normocephalic. Atraumatic. EYES: Pupils equal and round. No scleral icterus. No injection or drainage. ENT: No nasal bleeding or discharge. Mucous membranes pink and moist. NECK: Trachea midline. Full range of motion without pain.. CARDIOVASCULAR: Regular rate and rhythm. RESPIRATORY: No accessory muscle use. Clear to auscultation. Breath sounds equal bilaterally. GASTROINTESTINAL: Abdomen soft. Nontender. Bowel sounds present. Nondistended. : Patient refuses pelvic exam. MUSCULOSKELETAL: No obvious deformities. NEUROLOGICAL: Awake and alert. No obvious cranial nerve deficits. Motor grossly within normal limits. Normal speech. PSYCHIATRIC: Appropriate mood and affect; insight and judgment normal. Data Data Last Documented VS Vital Signs Date Time Temp Pulse Resp B/P (MAP) Pulse Ox O2 Delivery O2 Flow Rate FiO2 10/27/17 08:40 98.4 72 16 113/60 (77) 98 Orders Orders Gc And Chlamydia Pcr (10/27/17 09:03) Wet Prep Profile (10/27/17 09:03) Ed Urine Pregnancytest Poc (10/27/17 09:03) MDM Medical Decision Making Medical Screen Exam Complete: Yes Emergency Medical Condition: Yes Differential Diagnosis Differential diagnosis of pelvic pain includes but is not limited to UTI, PID, ectopic , spontaneous AB, constipation, viral illness Narrative Course This patient presents with pelvic pain and feeling weak between her legs. She did not produce a urine sample and refused a pelvic exam. There is nothing more that I can do for her. She is being signed out AMA. AMA: The risks of leaving against medical advice without further evaluation treatment were discussed with the patient. These risks include cardiac dysfunction, cardiac dysrhythmia, possible heart attack, possible stroke or . The patient indicated understanding of these risks and appeared to have the capacity to make this decision. Diagnosis Primary Impression: Pelvic pain in female Patient Instructions: General Instructions Departure Forms: Tests/Procedures Disposition: 07 AGAINST MEDICAL ADVICE Lashae Clement MD Oct 27, 2017 09:22
== END 2017-10-27 09:29 | disposition left against medical advice (07) ==
LOC: PHED 08:30
DX: R10.2 Pelvic and perineal pain (principal); F41.9 Anxiety disorder, unspecified; F32.9 Major depressive disorder, single episode, unspecified; Z53.29 Procedure and treatment not carried out because of patient's decision for other reasons
CPT/HCPCS: 99281

== ENCOUNTER 2017-10-27 14:52 | Emergency (ER) | payer OTHER ==
[~2017-10-27] VITALS: Ht 165.1 cm; Wt 69.0 kg
[2017-10-27 15:00] VITALS: BP 119/61; PULSE 87; RESP 16; TEMP 98.4; O2SAT 97
[2017-10-27 15:43] LABS: BILIRUBIN, URINE NEG (NEG); BLOOD, URINE TRACE (NEG); GLUCOSE,URINE NEG (NEG); KETONE, URINE NEG (NEG); NITRITE,URINE NEG (NEG); URINE LEUKOCYTE ESTERASE NEG (NEG)
[2017-10-27 15:48] LABS: MUCUS URINE MOD /lpf (OCC); URINE COLOR YELLOW (YELLW/STRAW)
[2017-10-27 15:49] LABS: AMORPHOUS SEDIMENT, URINE FEW; RBC, URINE 0-3 /hpf (0-3); SQUAMOUS EPITHELIAL CELL URINE 0-5 /hpf (0-5)
[2017-10-27 17:48] VITALS: BP_SYST 107; BP_SYST 110; BP_SYST 119; BP_DIAS 64; BP_DIAS 70; BP_DIAS 74; RESP 16
--- NOTE | 2017-10-27 17:54 | PD ---
HPI Chief Complaint: General Weakness Time Seen by Provider: 17:41 Travel History International Travel<30 days: No Contact w/Intl Traveler<30days: No Traveled to known affect area: No History of Present Illness HPI had a miscarriage in august, then per pt had her menses recently and now feels generalized weakness. 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 per pt she has a pcp and was at work today. tolerated soda and food prior to coming here. patient denies any fever/n/v/d/sore throat/cp/backpain/abdpain/ rash at this time. PFSH Past Medical History Anxiety: Yes Depression: Yes Diabetes: No Diminished Hearing: No Reproductive: Yes (HPV) Immunizations Current: No ?: Not : 2 Para: 1 Miscarriage: 0 Past Surgical History Gynecologic Surgery: Yes (LEEP IUD REMOVED; criosurgery(cervix)) Social History Alcohol Use: No Tobacco Use: No Substance Use: Yes (Occ. marijuana) Allergies-Medications (Allergen,Severity, Reaction): Coded Allergies: No Known Allergies (Unverified , 10/27/17) Reported Meds & Prescriptions Reported Meds & Active Scripts Active Reported Zoloft (Sertraline HCl) 50 Mg Tab 50 Mg PO DAILY Review of Systems General / Constitutional: Positive: Other (gen weakness) Physical Exam Narrative GENERAL: pt ambulated on her own. SKIN: Warm and dry. HEAD: Atraumatic. Normocephalic. EYES: Pupils equal and round. No scleral icterus. No injection or drainage. ENT: No nasal bleeding or discharge. Mucous membranes pink and moist. NECK: Trachea midline. No JVD. CARDIOVASCULAR: Regular rate and rhythm. RESPIRATORY: No accessory muscle use. Clear to auscultation. Breath sounds equal bilaterally. GASTROINTESTINAL: Abdomen soft, non-tender, nondistended. MUSCULOSKELETAL: Extremities without clubbing, cyanosis, or edema. No obvious deformities. NEUROLOGICAL: Awake and alert. No obvious cranial nerve deficits. Motor grossly within normal limits. Five out of 5 muscle strength in the arms and legs. Normal speech. PSYCHIATRIC: Appropriate mood and affect; insight and judgment normal. Data Data Last Documented VS Vital Signs Date Time Temp Pulse Resp B/P (MAP) Pulse Ox O2 Delivery O2 Flow Rate FiO2 10/27/17 17:48 77 16 119/64 (82) 74 16 107/70 (82) 77 16 110/74 (86) 10/27/17 15:00 98.4 97 Orders Orders Urinalysis - C+S If Indicated (10/27/17 15:23) Ed Urine Pregnancytest Poc (10/27/17 15:23) Orthostatic Vital Signs (10/27/17 17:41) Blood Glucose (10/27/17 17:41) Ed Discharge Order (10/27/17 17:54) Labs Laboratory Tests Test 10/27/17 15:00 Urine Color YELLOW Urine Turbidity SLIGHT Urine pH 7.0 Urine Specific [place] 1.025 Urine Protein NEG mg/dL Urine Glucose (UA) NEG mg/dL Urine Ketones NEG mg/dL Urine Occult Blood TRACE Urine Nitrite NEG Urine Bilirubin NEG Urine Leukocyte Esterase NEG Urine RBC 0-3 /hpf Urine WBC 3-5 /hpf Urine Squamous Epithelial Cells 0-5 /hpf Urine Amorphous Sediment FEW Urine Mucus MOD /lpf Microscopic Urinalysis Comment CULT NOT INDICATED MDM Medical Decision Making Medical Screen Exam Complete: Yes Emergency Medical Condition: Yes Medical Record Reviewed: Yes Differential Diagnosis dehydration v uit v Narrative Course patient tolerated soda and sloven[place] food which she ate just before i examined patient. Of note patient hcg neg, ua neg for uti and orthostatic negative...patient will be referred to her pcp for further evaluation of her generalized weakness Diagnosis Primary Impression: generalized weakness nos Patient Instructions: General Instructions, Weakness (ED) Additional Instructions: call doctor pawel for further evaluation of your generalized weakness that you have been experiencing... today no evidence of bladder infection, normal blood sugar, no evidence of dehydration (based on normal orthostatics). You are stable enough to have further studies performed via your primary care. Disposition: 01 DISCHARGE HOME Condition: Stable Galdino Lopez MD Oct 27, 2017 17:54
== END 2017-10-27 18:43 | disposition home or self-care (01) ==
LOC: PHED 14:52
DX: R53.1 Weakness (principal); F41.9 Anxiety disorder, unspecified; F32.9 Major depressive disorder, single episode, unspecified
CPT/HCPCS: 81001; 84703; 99283

== ENCOUNTER 2017-11-01 11:50 | Emergency (ER) | payer OTHER ==
[~2017-11-01] VITALS: Ht 165.1 cm; Wt 70.0 kg
[~2017-11-01 11:50] MED LIST changes: -UNIS25TA3 PO
[2017-11-01 11:52] VITALS: BP 118/64; PULSE 63; RESP 16; TEMP 98.2; O2SAT 98
[2017-11-01] MEDS ORDERED: NAPROXEN 500 MG TAB PO ONE (12:45)
[2017-11-01] MEDS ORDERED: NAPR500T2 PO (12:49)
--- NOTE | 2017-11-01 12:49 | PD ---
HPI Chief Complaint: Abdominal Pain Time Seen by Provider: 12:29 Travel History International Travel<30 days: No Contact w/Intl Traveler<30days: No Traveled to known affect area: No History of Present Illness HPI 22-year-old woman presents emergency department of ongoing lower abdominal discomfort. She she has had more abdominal pain ever since she had a miscarriage in August. Last menstrual period ended about 4 days ago. States it has been worse since then. She has had multiple workups in the ED, and with her primary physician. She also relates a feeling weak, tired, like when she does work at her job that things feel heavy in her hands. She thought she may be anemic but they checked her blood work yesterday and they called her and told her she was not. She came back in today because she still feels bad. Her moods been down, but does not think this is related to her symptoms. History Past Medical History Medical History: Denies Significant Hx LMP: 10/17/17 : 2 Para: 1 Social History Alcohol Use: No Tobacco Use: No Allergies-Medications (Allergen,Severity, Reaction): Coded Allergies: No Known Allergies (Unverified , 10/27/17) Reported Meds & Prescriptions Reported Meds & Active Scripts Active Reported Zoloft (Sertraline HCl) 50 Mg Tab 50 Mg PO DAILY Review of Systems Except as stated in HPI: all other systems reviewed are Neg Physical Exam Narrative GENERAL: 22-year-old woman, tearful sad. SKIN: Focused skin assessment warm/dry. HEAD: Atraumatic. Normocephalic. EYES: Pupils equal and round. No scleral icterus. No injection or drainage. ENT: No nasal bleeding or discharge. Mucous membranes pink and moist. NECK: Trachea midline. No JVD. CARDIOVASCULAR: Regular rate and rhythm. No murmur appreciated. RESPIRATORY: No accessory muscle use. Clear to auscultation. Breath sounds equal bilaterally. GASTROINTESTINAL: Abdomen soft, non-tender, nondistended. Hepatic and splenic margins not palpable. MUSCULOSKELETAL: No obvious deformities. Data Data Last Documented VS Vital Signs Date Time Temp Pulse Resp B/P (MAP) Pulse Ox O2 Delivery O2 Flow Rate FiO2 11/01/17 11:52 98.2 63 16 118/64 (82) 98 Orders Orders Naproxen (Naprosyn) (11/01/17 12:45) [facility] Medical Decision Making Medical Screen Exam Complete: Yes Emergency Medical Condition: Yes Differential Diagnosis Anxiety, endometriosis, dysmenorrhea, infection, other Narrative Course Medical decision making Is 22 oh woman presents emergency department of ongoing lower abdominal pain. Has been ongoing for a couple months since her procedure. States it started following a bimanual exam after procedure. I think her anxiety mood is tied into this some. She is reviewed previous workup, and says she really does not want to get "the same test" done again. She is a workup for anemia. She has had pelvic exams. None of these were done here however. She states the symptoms are the same as a bend, but she came to the ER today because she found that yesterday she was not anemic which she thought was causing her weakness. I told her that I recommended repeat the pelvic exam, urinalysis, labs, but she declines. She would like us to treat her pain and let her go which is reasonable. Diagnosis Primary Impression: Lower abdominal pain Additional Instructions: Use Naprosyn as needed for pain. Follow with her primary doctor in the next 2-4 days. Return to the emergency department for any new or worsening symptoms. Med/Other Pt SpecificInfo: Prescription(s) given Scripts Naproxen (Naproxen) 500 Mg Tab 500 MG PO BID, #14 TAB 0 Refills Prov: Esvin Vega MD 11/01/17 Disposition: 01 DISCHARGE HOME Condition: Stable Esvin Vega MD Nov 01, 2017 12:49
[2017-11-01 13:03] VITALS: BP 116/64
== END 2017-11-01 13:06 | disposition home or self-care (01) ==
LOC: NEPD 11:50
DX: R10.30 Lower abdominal pain, unspecified (principal); Z79.899 Other long term (current) drug therapy
CPT/HCPCS: 99283

== ENCOUNTER 2018-01-08 10:15 | Emergency (ER) | payer OTHER ==
[~2018-01-08] VITALS: Ht 165.1 cm; Wt 66.3 kg
[~2018-01-08 10:15] MED LIST changes: +NAPR500T2 PO
[2018-01-08 10:22] VITALS: BP 117/64; PULSE 62; RESP 16; TEMP 97.8; O2SAT 98
[2018-01-08 11:40] LABS: AUTOMATED NEUTROPHIL # 3.9 TH/MM3 (1.8-7.7); BASOPHIL # 0.1 TH/MM3 (0-0.2); EOSINOPHIL # 0.1 TH/MM3 (0-0.4); EOSINOPHIL % 1.2 % (0.0-4.0); HEMOGLOBIN 13.6 GM/DL (11.6-15.3); LYMPH % 25.3 % (9.0-44.0); LYMPHOCYTE # 1.5 TH/MM3 (1.0-4.8); MEAN CELL VOLUME 93.9 FL (80.0-100.0); MEAN CORPUSCULAR HGB CONC 34.1 % (32.0-36.0); MEAN PLATELET VOLUME 8.1 FL (7.0-11.0); MONO % 7.6 % (0.0-8.0); MONOCYTE # 0.5 TH/MM3 (0-0.9); NEUT % 64.9 % (16.0-70.0); PLATELET COUNT 224 TH/MM3 (150-450); RED BLOOD COUNT 4.26 MIL/MM3 (4.00-5.30); RED CELL DISTRIBUTION WIDTH 12.1 % (11.6-17.2); WHITE BLOOD COUNT 6.1 TH/MM3 (4.0-11.0)
--- NOTE | 2018-01-08 11:47 | PD ---
HPI Chief Complaint: GI Complaint Time Seen by Provider: 10:59 Travel History International Travel<30 days: No Contact w/Intl Traveler<30days: No Traveled to known affect area: No History of Present Illness HPI This 22-year-old female says she has been having diarrhea for 5 days. She is having some lower abdominal pain. She is not aware of any fever or chills. The pain she is having is crampy and intermittent. She had been on antibiotic for urinary tract infection fairly recently. There has not been any vomiting. Pain she is having is crampy intermittent pain relieved by bowel movement. There is been no fevers PFSH Past Medical History Anxiety: Yes Depression: Yes Diabetes: No Diminished Hearing: No Reproductive: Yes (HPV) Immunizations Current: No ?: Not LMP: NOW : 2 Para: 1 Miscarriage: 0 Past Surgical History Surgical History: No Previous Surgery Gynecologic Surgery: Yes (LEEP IUD REMOVED; criosurgery(cervix)) Social History Alcohol Use: No Tobacco Use: No Substance Use: Yes (Occ. marijuana) Allergies-Medications (Allergen,Severity, Reaction): Coded Allergies: No Known Allergies (Unverified , 01/08/18) Reported Meds & Prescriptions Reported Meds & Active Scripts Active Review of Systems Except as stated in HPI: all other systems reviewed are Neg General / Constitutional: No: Fever, Chills Cardiovascular: No: Chest Pain or Discomfort Respiratory: No: Cough Gastrointestinal: Positive: Diarrhea, No: Vomiting Physical Exam Narrative GENERAL: Well-developed female SKIN: Focused skin assessment warm/dry. HEAD: Atraumatic. Normocephalic. EYES: Pupils equal and round. No scleral icterus. No injection or drainage. ENT: No nasal bleeding or discharge. Mucous membranes pink and moist. NECK: Trachea midline. No JVD. CARDIOVASCULAR: Regular rate and rhythm. No murmur appreciated. RESPIRATORY: No accessory muscle use. Clear to auscultation. Breath sounds equal bilaterally. GASTROINTESTINAL: Abdomen soft, mild lower abdominal tenderness, nondistended. Hepatic and splenic margins not palpable. MUSCULOSKELETAL: No obvious deformities. No clubbing. No cyanosis. No edema. NEUROLOGICAL: Awake and alert. No obvious cranial nerve deficits. Motor grossly within normal limits. Normal speech. PSYCHIATRIC: Appropriate mood and affect; insight and judgment normal. Data Data Last Documented VS Vital Signs Date Time Temp Pulse Resp B/P (MAP) Pulse Ox O2 Delivery O2 Flow Rate FiO2 01/08/18 10:22 97.8 62 16 117/64 (81) 98 Orders Orders Complete Blood Count With Diff (01/08/18 10:59) Comprehensive Metabolic Panel (01/08/18 10:59) Enteric Path (Stool) (01/08/18 10:59) C Diff Toxin Pcr (01/08/18 10:59) Loperamide (Imodium) (01/08/18 12:30) Labs Laboratory Tests Test 01/08/18 11:10 01/08/18 11:15 White Blood Count 6.1 TH/MM3 Red Blood Count 4.26 MIL/MM3 Hemoglobin 13.6 GM/DL Hematocrit 40.0 % Mean Corpuscular Volume 93.9 FL Mean Corpuscular Hemoglobin 32.0 PG Mean Corpuscular Hemoglobin Concent 34.1 % Red Cell Distribution Width 12.1 % Platelet Count 224 TH/MM3 Mean Platelet Volume 8.1 FL Neutrophils (%) (Auto) 64.9 % Lymphocytes (%) (Auto) 25.3 % Monocytes (%) (Auto) 7.6 % Eosinophils (%) (Auto) 1.2 % Basophils (%) (Auto) 1.0 % Neutrophils # (Auto) 3.9 TH/MM3 Lymphocytes # (Auto) 1.5 TH/MM3 Monocytes # (Auto) 0.5 TH/MM3 Eosinophils # (Auto) 0.1 TH/MM3 Basophils # (Auto) 0.1 TH/MM3 CBC Comment DIFF FINAL Differential Comment Blood Urea Nitrogen 11 MG/DL Creatinine 0.52 MG/DL Random Glucose 81 MG/DL Total Protein 8.1 GM/DL Albumin 4.2 GM/DL Calcium Level 8.9 MG/DL Alkaline Phosphatase 52 U/L Aspartate Amino Transf (AST/SGOT) 9 U/L Alanine Aminotransferase (ALT/SGPT) 15 U/L Total Bilirubin 0.6 MG/DL Sodium Level 141 MEQ/L Potassium Level 3.6 MEQ/L Chloride Level 109 MEQ/L Carbon Dioxide Level 28.2 MEQ/L Anion Gap 4 MEQ/L Estimat Glomerular Filtration Rate 145 ML/MIN MDM Medical Decision Making Medical Screen Exam Complete: Yes Emergency Medical Condition: Yes Medical Record Reviewed: Yes Differential Diagnosis Differential includes enteritis, dysentery, C. difficile Narrative Course Stool cultures have been obtained and are pending. In the meantime I will recommend the patient take Imodium. Her blood work suggests a viral illness Diagnosis Primary Impression: Enteritis Additional Instructions: Use [id number] Imodium for diarrhea Disposition: 01 DISCHARGE HOME Condition: Stable Clovis Stein MD Jan 08, 2018 11:47
[2018-01-08 11:57] LABS: CHLORIDE 109 MEQ/L (98-107); SODIUM (NA) 141 MEQ/L (136-145)
[2018-01-08 12:00] LABS: CALCIUM 8.9 MG/DL (8.5-10.1)
[2018-01-08 12:01] LABS: ALBUMIN 4.2 GM/DL (3.4-5.0); BICARBONATE 28.2 MEQ/L (21.0-32.0); BLOOD UREA NITROGEN 11 MG/DL (7-18); GLUCOSE,RANDOM 81 MG/DL (74-106)
[2018-01-08 12:04] LABS: ALT (GPT) 15 U/L (10-53); CREATININE 0.52 MG/DL (0.50-1.00); GLOMERULAR FILTRATION RATE 145 ML/MIN (>89)
[2018-01-08 12:05] LABS: TOTAL BILIRUBIN ADULT 0.6 MG/DL (0.2-1.0)
[2018-01-08 12:06] LABS: TOTAL PROTEIN 8.1 GM/DL (6.4-8.2)
[2018-01-08 12:07] LABS: ALKALINE PHOSPHATASE 52 U/L (45-117)
[2018-01-08 12:10] LABS: AST (GOT) 9 U/L (15-37)
[2018-01-08] MEDS ORDERED: LOPERAMIDE HCL 2 MG CAP PO ONE (12:30)
[2018-01-08 12:33] VITALS: BP 106/70; PULSE 82; RESP 16; O2SAT 99
== END 2018-01-08 12:44 | disposition home or self-care (01) ==
LOC: PHED 10:15
DX: K52.9 Noninfective gastroenteritis and colitis, unspecified (principal); F41.9 Anxiety disorder, unspecified; F32.9 Major depressive disorder, single episode, unspecified
CPT/HCPCS: 80053; 85025; 87493; 87506; 99283

== ENCOUNTER 2018-02-24 22:42 | Inpatient (IN) | payer OTHER ==
[~2018-02-24] VITALS: Ht 165.1 cm; Wt 65.5 kg
[2018-02-24 22:45] VITALS: BP 131/84; PULSE 96; RESP 16; TEMP 98.2; O2SAT 100
[2018-02-24] MEDS ORDERED: SODIUM CHLOR 0.9% 1000 ML INJ 1,000 ML IV ONE (23:00)
[2018-02-24 23:16] VITALS: O2SAT 100
[2018-02-24 23:26] LABS: AUTOMATED NEUTROPHIL # 4.5 TH/MM3 (1.8-7.7); BASOPHIL # 0.1 TH/MM3 (0-0.2); BASOPHIL % 0.9 % (0.0-2.0); EOSINOPHIL % 0.5 % (0.0-4.0); HEMATOCRIT 40.5 % (35.0-46.0); HEMOGLOBIN 14.3 GM/DL (11.6-15.3); LYMPH % 26.5 % (9.0-44.0); LYMPHOCYTE # 1.9 TH/MM3 (1.0-4.8); MEAN CELL VOLUME 92.9 FL (80.0-100.0); MEAN CORPUSCULAR HEMOGLOBIN 32.7 PG (27.0-34.0); MEAN CORPUSCULAR HGB CONC 35.2 % (32.0-36.0); MEAN PLATELET VOLUME 8.8 FL (7.0-11.0); MONO % 8.4 % (0.0-8.0); MONOCYTE # 0.6 TH/MM3 (0-0.9); NEUT % 63.7 % (16.0-70.0); PLATELET COUNT 215 TH/MM3 (150-450); RED BLOOD COUNT 4.36 MIL/MM3 (4.00-5.30); RED CELL DISTRIBUTION WIDTH 12.5 % (11.6-17.2)
[2018-02-24 23:43] LABS: INTERNATIONAL NORMALIZED RATIO 1.2 RATIO; PROTHROMBIN TIME - PATIENT 11.7 SEC (9.8-11.6)
[2018-02-24 23:45] LABS: ALBUMIN 4.4 GM/DL (3.4-5.0); AST (GOT) 22 U/L (15-37); BICARBONATE 22.8 MEQ/L (21.0-32.0); BLOOD UREA NITROGEN 11 MG/DL (7-18); CALCIUM 8.7 MG/DL (8.5-10.1); CHLORIDE 109 MEQ/L (98-107); CREATININE 0.64 MG/DL (0.50-1.00); GLOMERULAR FILTRATION RATE 114 ML/MIN (>89); GLUCOSE,RANDOM 106 MG/DL (74-106); SODIUM (NA) 142 MEQ/L (136-145)
[2018-02-24 23:54] LABS: ALKALINE PHOSPHATASE 41 U/L (45-117); ALT (GPT) 34 U/L (10-53); TOTAL BILIRUBIN ADULT 0.5 MG/DL (0.2-1.0); TOTAL PROTEIN 7.7 GM/DL (6.4-8.2)
[2018-02-24 23:55] LABS: ACETAMINOPHEN LESS THAN 2.0 MCG/ML (10.0-30.0)
--- NOTE | 2018-02-25 00:31 | PD ---
HPI Chief Complaint: Alcohol/Drug Intoxication Time Seen by Provider: 22:57 Travel History International Travel<30 days: No Contact w/Intl Traveler<30days: No Traveled to known affect area: No History of Present Illness HPI The patient is a 22 year old female who presents to the [facility] emergency department with a history of arriving back in the area to visit her family over the weekend with altered mentation. Throughout that period of time , the patient's grandmother who reportedly raised her has noticed that she is been acting erratically. Today she admitted to using ice. She also expressed to them that she did not want to live anymore. According to the patient's grandmother the patient has been residing with her boyfriend on the [facility] over the last month and since arriving back has been changed. They deny her having any prior psychiatric diagnoses, however she does have a family history of psychiatric disorder in her mom. The patient on arrival is intermittently singing. When asked her name she states that she is Robson. No consistent history is able to be obtained from the patient. LMP unknown PFSH Past Medical History Narrative Medical The patient's past medical history is significant for having C. difficile colitis in the past, history of urinary tract infections, history of cervical dysplasia. Anxiety: Yes Depression: Yes Diabetes: No Diminished Hearing: No Reproductive: Yes (HPV) Immunizations Current: No ?: Unknown : 2 Para: 1 Miscarriage: 0 Past Surgical History Narrative Surgical The patient's past surgical history is significant for cryosurgery for cervical dysplasia. Gynecologic Surgery: Yes (LEEP IUD REMOVED; criosurgery(cervix)) Social History Alcohol Use: Yes (occasional alcohol use) Tobacco Use: No Substance Use: Yes (Occ. marijuana, Ice) Allergies-Medications (Allergen,Severity, Reaction): Coded Allergies: No Known Allergies (Unverified , 02/24/18) Reported Meds & Prescriptions Reported Meds & Active Scripts Active No Active Prescriptions or Reported Medications Review of Systems Except as stated in HPI: all other systems reviewed are Neg General / Constitutional: No: Fever Eyes: No: Visual changes HENT: No: Headaches Cardiovascular: No: Chest Pain or Discomfort Respiratory: No: Shortness of Breath Gastrointestinal: No: Nausea, Vomiting, Diarrhea, Abdominal Pain Genitourinary: No: Dysuria Musculoskeletal: No: Pain Skin: No Rash Neurologic: Positive: Change in Mentation, No: Weakness, Focal Abnormalities, Slurred Speech, Sensory Disturbance Psychiatric: Positive: Suicidal Ideations, Disorder of Thought, Substance Abuse , No: Depression Endocrine: No: Polydipsia Hematologic/Lymphatic: No: Easy Bruising Physical Exam Narrative General: The patient is a well-developed well-nourished female, agitated on arrival, intermittently singing. Head and Neck exam: Head is normocephalic atraumatic. Eyes: EOMI. The patient's pupils are 5 mm and reactive to light. Nose: Midline septum with pink mucous membranes Mouth: Dentition unremarkable. Moist mucus membranes. Posterior oropharynx is not erythematous. No tonsillar hypertrophy. Uvula midline. Airway patent. Neck: No palpable lymphadenopathy. No nuchal rigidity. No thyromegaly. Cardiovascular: Regular rate and rhythm without murmurs, gallops, or rubs. No pulse deficit to the extremities on simultaneous auscultation and palpation of her radial artery. Lungs: Clear to auscultation bilaterally. No wheezes, rhonchi, or rales. Abdomen: Soft, without tenderness to palpation in all 4 quadrants of the abdomen. No guarding, rebound, or rigidity. Normal bowel sounds are audible. No tenderness on palpation of McBurney's point. Negative Farooq sign. Extremities: No clubbing, cyanosis, or edema. 2+ pulses in all 4 extremities. No calf tenderness on palpation. Back: No spinous process tenderness to palpation. No costovertebral angle tenderness to palpation. Neurologic Exam: Cranial nerves 2-12 were intact on exam. Strength is 5/5 in all 4 extremities. No sensory deficits noted. The patient's affect is abnormal with intermittently crying then intermittently laughing. Skin Exam: No rash noted. Intact skin that is warm and dry. Data Data Last Documented VS Vital Signs Date Time Temp Pulse Resp B/P (MAP) Pulse Ox O2 Delivery O2 Flow Rate FiO2 02/24/18 23:16 100 Room Air 02/24/18 22:45 98.2 96 16 131/84 (100) Orders Orders Electrocardiogram (02/24/18 22:57) Complete Blood Count With Diff (02/24/18 22:57) Comprehensive Metabolic Panel (02/24/18 22:57) Prothrombin Time / Inr (Pt) (02/24/18 22:57) Act Partial Throm Time (Ptt) (02/24/18 22:57) Urinalysis - C+S If Indicated (02/24/18:57) Magnesium (Mg) (02/24/18 22:57) Thyroid Stimulating Hormone (02/24/18 22:57) Iv Access Insert/Monitor (02/24/18 22:57) Ecg Monitoring (02/24/18 22:57) Oximetry (02/24/18 22:57) Ed Urine Pregnancytest Poc (02/24/18 22:57) Drug Screen, Random Urine (02/24/18 22:57) Alcohol (Ethanol) (02/24/18 22:57) Salicylates (Aspirin) (02/24/18:57) Tylenol (Acetaminophen) (02/24/18 22:57) Sodium Chlor 0.9% 1000 Ml Inj (Ns 1000 M (02/24/18 23:00) Ct Brain W/O Iv Contrast(Rout) (02/25/18 00:01) Psych Screen (02/25/18 00:24) Sodium Chlor 0.9% 1000 Ml Inj (Ns 1000 M (02/25/18 01:30) Labs Laboratory Tests Test 02/24/18 23:10 02/25/18 00:15 White Blood Count 7.0 TH/MM3 Red Blood Count 4.36 MIL/MM3 Hemoglobin 14.3 GM/DL Hematocrit 40.5 % Mean Corpuscular Volume 92.9 FL Mean Corpuscular Hemoglobin 32.7 PG Mean Corpuscular Hemoglobin Concent 35.2 % Red Cell Distribution Width 12.5 % Platelet Count 215 TH/MM3 Mean Platelet Volume 8.8 FL Neutrophils (%) (Auto) 63.7 % Lymphocytes (%) (Auto) 26.5 % Monocytes (%) (Auto) 8.4 % Eosinophils (%) (Auto) 0.5 % Basophils (%) (Auto) 0.9 % Neutrophils # (Auto) 4.5 TH/MM3 Lymphocytes # (Auto) 1.9 TH/MM3 Monocytes # (Auto) 0.6 TH/MM3 Eosinophils # (Auto) 0.0 TH/MM3 Basophils # (Auto) 0.1 TH/MM3 CBC Comment DIFF FINAL Differential Comment Prothrombin Time 11.7 SEC Prothromb Time International Ratio 1.2 RATIO Activated Partial Thromboplast Time 27.5 SEC Blood Urea Nitrogen 11 MG/DL Creatinine 0.64 MG/DL Random Glucose 106 MG/DL Total Protein 7.7 GM/DL Albumin 4.4 GM/DL Calcium Level 8.7 MG/DL Magnesium Level 2.0 MG/DL Alkaline Phosphatase 41 U/L Aspartate Amino Transf (AST/SGOT) 22 U/L Alanine Aminotransferase (ALT/SGPT) 34 U/L Total Bilirubin 0.5 MG/DL Sodium Level 142 MEQ/L Potassium Level 3.5 MEQ/L Chloride Level 109 MEQ/L Carbon Dioxide Level 22.8 MEQ/L Anion Gap 10 MEQ/L Estimat Glomerular Filtration Rate 114 ML/MIN Thyroid Stimulating Hormone 3rd Gen 1.160 uIU/ML Salicylates Level LESS THAN 1.7 MG/DL Acetaminophen Level LESS THAN 2.0 MCG/ML Ethyl Alcohol Level LESS THAN 3 MG/DL Urine Color YELLOW Urine Turbidity HAZY Urine pH 6.0 Urine Specific [place] 1.033 Urine Protein 30 mg/dL Urine Glucose (UA) NEG mg/dL Urine Ketones 40 mg/dL Urine Occult Blood NEG Urine Nitrite NEG Urine Bilirubin NEG Urine Urobilinogen LESS THAN 2.0 MG/DL Urine Leukocyte Esterase SMALL Urine RBC 3 /hpf Urine WBC 6 /hpf Urine Squamous Epithelial Cells 5 /hpf Urine Bacteria RARE /hpf Urine Mucus MANY /lpf Microscopic Urinalysis Comment CULT NOT INDICATED Urine Opiates Screen NEG Urine Barbiturates Screen NEG Urine Amphetamines Screen NEG Urine Benzodiazepines Screen NEG Urine Cocaine Screen NEG Urine Cannabinoids Screen POS MDM Medical Decision Making Medical Screen Exam Complete: Yes Emergency Medical Condition: Yes Medical Record Reviewed: Yes Differential Diagnosis Substance-induced mood disorder, acute psychosis, versus substance intoxication causing acute agitation and psychosis, versus intracranial abnormality, versus encephalopathy Narrative Course During the course of the patient's emergency department visit, the patient's history, examination, and differential diagnosis were reviewed with the patient. The patient was placed on a radiation monitor with oximetry and frequent blood pressure monitoring. The patient had IV access obtained and blood work sent for analysis. A Page act was written on the patient. A psychiatric screen was ordered. The patient had an EKG done on arrival that shows a sinus rhythm heart rate of 99, QRS duration is 86 ms, [address] segment elevation. The patient was initially provided normal saline 1 L IV fluid bolus. The patient's laboratory studies were reviewed and remarkable for a CBC that is within normal limits, CMP is remarkable for chloride of 109, alk phos 41, TSH within normal limit, PT PTT unremarkable, urine drug screen is positive for cannabinoids, acetaminophen less than 2, salicylate less than 1.7, alcohol level less than 3, urinalysis shows 30 protein, 40 ketones, 6 WBCs, 5 squamous epithelial cells suggesting contamination, rare bacteria, culture not indicated. A bedside test is negative. Radiology studies were reviewed and remarkable for a CT scan of the brain that shows no acute abnormality. The patient has been medically cleared for evaluation by the psychiatric screener under a Page act. Diagnosis Primary Impression: Acute psychosis Additional Impression: Suicidal ideation Scripts No Active Prescriptions or Reported Meds Sandra Mendez MD Feb 25, 2018 00:31
[2018-02-25 00:37] LABS: BACTERIA, URINE RARE /hpf; BILIRUBIN, URINE NEG (NEG); BLOOD, URINE NEG (NEG); GLUCOSE,URINE NEG (NEG); KETONE, URINE 40 mg/dL (NEG); MUCUS URINE MANY /lpf (OCC); NITRITE,URINE NEG (NEG); SQUAMOUS EPITHELIAL CELL URINE 5 /hpf (0-5); URINE COLOR YELLOW (YELLW/STRAW); URINE LEUKOCYTE ESTERASE SMALL (NEG)
--- NOTE | 2018-02-25 01:09 | RADRPT ---
EXAM DATE: 02/25/2018 12:59 AM EDT AGE/SEX: 22 years / Female INDICATIONS: Altered mental status. CLINICAL DATA: This is the patient's initial encounter. Patient reports that signs and symptoms have been present for 1 day and indicates a pain score of 0/10. MEDICAL/SURGICAL HISTORY: None. None. RADIATION DOSE: 56.35 CTDI (mGy) COMPARISON: [facility], CT BRAIN W/O CONTRAST, 08/05/2017. . TECHNIQUE: CT of the head without contrast. Using automated exposure control and adjustment of the mA and/or kV according to patient size, radiation dose was kept as low as reasonably achievable to ob tain optimal diagnostic quality images. FINDINGS: Cerebrum: The ventricles are normal for age. No evidence of midline shift, mass lesion, hemorrhage or acute infarction. No extraaxial fluid collections are seen. Posterior Fossa: The cerebellum and brainstem are intact. The 4th ventricle is midline. The cerebe llopontine angle is unremarkable. Extracranial: The visualized portion of the orbits is intact. Skull: The calvaria is intact. No evidence of skull fracture. CONCLUSION: No acute intracranial findings. Electronically signed by: Jameel Bennett MD 02/25/2018 1:08 AM EDT
[2018-02-25] MEDS ORDERED: SODIUM CHLOR 0.9% 1000 ML INJ 1,000 ML IV ONE (01:30)
[2018-02-25 02:22] VITALS: BP 112/58; PULSE 95; RESP 16; O2SAT 99
[2018-02-25] MEDS ORDERED: diphenhydrAMINE HCL 50 MG/ML VIAL - HS PRN IM (06:30)
[2018-02-25] MEDS ORDERED: ALUMINUM/MAGNESIUM/SIMETH 30 ML CUP PO PRN (06:30)
[2018-02-25] MEDS ORDERED: hydrOXYzine HCL 50 MG TAB PO PRN (06:30)
[2018-02-25] MEDS ORDERED: MAGNESIUM HYDROXIDE SUSP 30 ML CUP PO PRN (06:30)
[2018-02-25] MEDS: NICOTINE 21 MG/24 HR PATCH T-DERMAL SCH (09:00)
--- NOTE | 2018-02-25 09:08 | EKG ---
Date Performed: 02/24/2018 Time Performed: 22:09:29 PTAGE: 22 years EKG: Sinus rhythm NORMAL ECG PREVIOUS TRACING : 10/03/2017 10.42 DOCTOR: Esvin Lopez Interpretating Date/Time 02/25/2018 09:06:44
[2018-02-25] MEDS ORDERED: HALOPERIDOL LACTATE 5 MG/ML AMP ONE (09:19)
[2018-02-25 09:48] VITALS: BP 144/86; PULSE 97; RESP 18; TEMP 97.1; O2SAT 99
[2018-02-25] MEDS ORDERED: HALOPERIDOL LACTATE 5 MG/ML AMP IM ONE (10:00)
[2018-02-25] MEDS ORDERED: diphenhydrAMINE HCL 50 MG/ML VIAL IM ONE (10:00)
--- NOTE | 2018-02-25 14:11 | HHI.HP ---
Provisional Diagnosis Admission Date Feb 25, 2018 at 06:19 Achille I. 1. Brief psychotic disorder Rule out primary psychotic disorder or mood disorder with psychotic features Rule out psychosis due to a substance Rule out psychosis due to a general medical condition 2. Cannabis abuse Achille II. Deferred Certification of Person's Competence To Provide Express and Informed Consent I have personally examined Hina Lamas , a person being served at [facility] on, Feb 25, 2018 14:11. Express and informed consent means consent voluntarily given in writing, by a competent person, after sufficient explanation and disclosure of the subject matter involved to enable the person to make a knowing and willful decision without any element of force, fraud, deceit, duress, or other form of constraint or coercion. This person is 18 years of age or older, is not now known to be incompetent to consent to treatment with a guardian advocate, and does not have a health care surrogate or proxy currently making medical treatment decisions. I have found this person to be one of the following: [] Competent to provide express and informed consent, as defined above, for voluntary admission to this facility and is competent to provide express and informed consent for treatment. He/she has the consistent capacity to make well reasoned, willful, and knowing decisions concerning his or her medical or mental health treatment. The person fully and consistently understands the purpose of the admission for examination/placement and is fully capable of personally exercising all rights [place] [x] Incompetent to provide express and informed consent to voluntary admission, and this is incompetent to provide express and informed consent to treatment. The person must be transferred to involuntary status and a petition for a guardian advocate filed with the Circuit Court. [] Refusing to provide express and informed consent to voluntary admission but is competent to provide express and informed consent for treatment. The person must be discharged or transferred to involuntary status. Form shall be completed within 24 hours of a person's arrival at the receiving facility and filed in the clinical record of each person: 1. Admitted on a voluntary basis 2. Permitted to provide express and informed consent to his/her own treatment 3. Allowed to transfer from involuntary to voluntary status 4. Prior to permitting a person to consent to his or her own treatment after having been previously found incompetent to consent to treatment. History of Present Illness Capacity: Lacks Capacity Psych Chief Complaint: Psychosis HPI Ms. Lamas is 22-year-old female with no known past psychiatric history who was brought into the ED by family out of concern for erratic behavior. Reviewing the ED provider notes, it appears the patient was singing to herself and said that her name was Robson. Family was concerned about substance use, namely "ice." Patient's urine toxicology was positive only for cannabinoids. Reviewing the electronic medical record, I see no previous psychiatric contact within our system although the patient does report a remote HBS history to me. Patient seen and examined with nurse Helene and ulises Lewis. Chart reviewed. Case discussed with nursing staff. Apparently, upon arrival to the unit the patient was spitting in her hands and trying to touch people. She was medicated with Haldol and Benadryl IM per Dr. Harper who admitted the patient. I have discussed the matter with the charge nurse, and the plan is to move the patient to the higher acuity unit which is appropriate given ongoing psychosis. On my examination today, the patient presents as fairly disorganized. She is disheveled. She is responding to internal stimuli. She tells me that she occasionally hears God's voices and "something pulling one way or another way." She endorses recent paranoia. She also endorses ideas of reference and says that "this world is about to go into a new chapter and it is going to be scary." Regarding the incident in which she was spitting into her hands she says "I just feel when I tell the truth in God's voice, when I get the truth from God I have to spit it out." She endorses intermittent suicidal ideation but denies any SI or HI now. Psychiatric interview is somewhat limited because of patient's degree of psychiatric impairment at present. Patient verbalizes no acute physical complaints. Given patient's degree of psychiatric impairment I have obtained collateral information from the patient's grandmother Melissa Bello at number listed in EMR. Grandmother reports that there is no history of diagnosed mental illness in the patient, nor does grandmother know of any history of bizarre behavior prior to presentation here. She does note that the patient's mother has a history of mental illness and is now homeless. Grandmother does suspect patient has been abusing substances and reiterates that patient said that she had been using ice. Grandmother notes that patient's baseline personality as "hot headed." Grandmother is reluctant to act as healthcare surrogate and says that she will have to think about it. This apparently has to do with her previous experience with patient's mother's mental illness. She will get back to me about whether she is willing to act in the role of health care surrogate, although it is not clear that there is anyone else that is able to fill this role. Past psychiatric history: No reported previous psychiatric diagnoses. Not under the care of a psychiatrist presently. Patient reports that she was admitted to [facility] as a teen, although I see no record of this. She denies any history of suicide attempts. Family history: Patient is unsure of family mental health history. Chemical dependency history: Patient reports that she uses cannabis daily. She is unable to tell me if she has received cannabis from a new supplier or in unfamiliar source. She denies any other substance use. Social history: The patient is unable to tell me what her living situation is. She has her GED and attended through the ninth grade. She does not work. She has a boyfriend Milo whom she has known for 8 or 9 months. She has a daughter. She attends the [employer]. No reported access to guns or firearms. Review of Systems ROS Limitations: Psychotic, Poor Historian Except as stated in HPI: all other systems reviewed are Neg Past Family Social History Coded Allergies: No Known Allergies (Unverified , 02/24/18) Past Medical History See electronic medical record No Active Prescriptions or Reported Meds Current Medications Medications (Trade) Dose Ordered Sig/Arabella Route Start Time Stop Time Status Last Admin (Atarax) 50 mg Q6H PRN PO 02/25/18 06:30 (Benadryl) 50 mg HS PRN PO 02/25/18 06:30 (Benadryl Inj) 50 mg HS PRN IM 02/25/18 06:30 (Tylenol) 650 mg Q4H PRN PO 02/25/18 06:30 (Milk Of Magnesia Liq) 30 ml DAILY PRN PO 02/25/18 06:30 (Mag-Al Plus Susp Liq) 30 ml Q6H PRN PO 02/25/18 06:30 (Habitrol 21 Mg Patch.24 Hr) 1 patch DAILY T-DERMAL 02/25/18 09:00 Miscellaneous Information 1 HS T-DERMAL 02/25/18 21:00 Patient's Strengths (min. 2) In a monitored setting. Verbally fluent. Physical Exam Physical exam completed by ED provider. On my examination today, the patient appears to be in no acute physical distress. No motor abnormalities noted. No obvious signs of withdrawal noted, although she may remain somewhat intoxicated from an unknown substance or perhaps from cannabis. Labs and vital signs reviewed: Vital Signs Vital Signs Date Time Temp Pulse Resp B/P (MAP) Pulse Ox O2 Delivery O2 Flow Rate FiO2 02/25/18 09:48 97.1 97 18 144/86 (105) 99 02/25/18 02:22 Room Air Lab Results Test 02/24/18 23:10 02/25/18 00:15 White Blood Count 7.0 TH/MM3 Red Blood Count 4.36 MIL/MM3 Hemoglobin 14.3 GM/DL Hematocrit 40.5 % Mean Corpuscular Volume 92.9 FL Mean Corpuscular Hemoglobin 32.7 PG Mean Corpuscular Hemoglobin Concent 35.2 % Red Cell Distribution Width 12.5 % Platelet Count 215 TH/MM3 Mean Platelet Volume 8.8 FL Neutrophils (%) (Auto) 63.7 % Lymphocytes (%) (Auto) 26.5 % Monocytes (%) (Auto) 8.4 % Eosinophils (%) (Auto) 0.5 % Basophils (%) (Auto) 0.9 % Neutrophils # (Auto) 4.5 TH/MM3 Lymphocytes # (Auto) 1.9 TH/MM3 Monocytes # (Auto) 0.6 TH/MM3 Eosinophils # (Auto) 0.0 TH/MM3 Basophils # (Auto) 0.1 TH/MM3 CBC Comment DIFF FINAL Differential Comment Prothrombin Time 11.7 SEC Prothromb Time International Ratio 1.2 RATIO Activated Partial Thromboplast Time 27.5 SEC Blood Urea Nitrogen 11 MG/DL Creatinine 0.64 MG/DL Random Glucose 106 MG/DL Total Protein 7.7 GM/DL Albumin 4.4 GM/DL Calcium Level 8.7 MG/DL Magnesium Level 2.0 MG/DL Alkaline Phosphatase 41 U/L Aspartate Amino Transf (AST/SGOT) 22 U/L Alanine Aminotransferase (ALT/SGPT) 34 U/L Total Bilirubin 0.5 MG/DL Sodium Level 142 MEQ/L Potassium Level 3.5 MEQ/L Chloride Level 109 MEQ/L Carbon Dioxide Level 22.8 MEQ/L Anion Gap 10 MEQ/L Estimat Glomerular Filtration Rate 114 ML/MIN Thyroid Stimulating Hormone 3rd Gen 1.160 uIU/ML Salicylates Level LESS THAN 1.7 MG/DL Acetaminophen Level LESS THAN 2.0 MCG/ML Ethyl Alcohol Level LESS THAN 3 MG/DL Urine Color YELLOW Urine Turbidity HAZY Urine pH 6.0 Urine Specific [place] 1.033 Urine Protein 30 mg/dL Urine Glucose (UA) NEG mg/dL Urine Ketones 40 mg/dL Urine Occult Blood NEG Urine Nitrite NEG Urine Bilirubin NEG Urine Urobilinogen LESS THAN 2.0 MG/DL Urine Leukocyte Esterase SMALL Urine RBC 3 /hpf Urine WBC 6 /hpf Urine Squamous Epithelial Cells 5 /hpf Urine Bacteria RARE /hpf Urine Mucus MANY /lpf Microscopic Urinalysis Comment CULT NOT INDICATED Urine Opiates Screen NEG Urine Barbiturates Screen NEG Urine Amphetamines Screen NEG Urine Benzodiazepines Screen NEG Urine Cocaine Screen NEG Urine Cannabinoids Screen POS EKG normal sinus rhythm with a QTc of 413 ms, not prolonged. Last Impressions Head CT 02/25/18 0001 Signed Impressions: CONCLUSION: No acute intracranial findings. ED point of care test negative. Mental Status Examination Appearance: Dirty, Disheveled Consciousness: Alert Orientation: Person Motor Activity: Normal gait Speech: Slow Language: Other (Rambling) Fund of Knowledge: Inadequate Attention and Concentration: Easily Distracted Memory: Impaired (Psychosis interferes) Mood: Other (Mildly dysphoric) Affect: Flat Thought Process & Associations: Disorganized Thought Content: Hallucinations, Preoccupations, Delusional Hallucination Type: Other (Responding to internal stimuli) Delusion Type: Paranoid, Other (Mormonism, ideas of reference) Suicidal Ideation: No (Unreliable to contract for safety) Homicidal Ideation: No (Unreliable to contract for safety) Insight: Poor Judgment: Poor Assessment & Plan Problem List: (1) Brief psychotic disorder ICD Codes: F23 - Brief psychotic disorder (2) Cannabis abuse ICD Codes: F12.10 - Cannabis abuse, uncomplicated Assessment & Plan 22-year-old female with psychiatric history as detailed above who presents under Page act. Patient is acutely psychotic. Differential diagnosis includes primary psychotic illness (especially given possible family history of same and mother), mood disorder with psychotic features, psychosis due to a substance or psychosis due to a general medical condition. I will plan to admit the patient to the inpatient psychiatric unit for safety, observation and stabilization. Admit inpatient. Involuntary status. I have completed first opinion. Consult for second opinion. Request healthcare surrogate and guardian advocate. No scheduled psychotropics at this time as we have no one willing to act as healthcare surrogate. Patient likely would benefit from an antipsychotic. Initiate first break psychosis workup. Transfer to higher acuity unit when a bed is available for closer monitoring. Vitals every shift. Counselor to see. Disposition planning. Estimated length of stay: 7-9 days. Discharge Planning Pending psychiatric stabilization Request HC Surrog/Guard Advoc?: Yes Daniel Jordan MD Feb 25, 2018 14:11
[2018-02-25 20:21] LABS: FOLATE GREATER THAN 20.0 NG/ML (3.1-17.5)
[2018-02-25] MEDS: REMOVE OLD NICOTINE PATCH T-DERMAL SCH (21:00)
[2018-02-26 06:04] VITALS: BP 113/61; PULSE 81; RESP 16; TEMP 97.3; O2SAT 100
[2018-02-26 08:06] LABS: CHOLESTEROL 126 MG/DL (120-200)
[2018-02-26 08:08] LABS: CHOLESTEROL/ HDL RATIO 2.42 RATIO; LDL CHOLESTEROL 64 MG/DL (0-99); TRIGLYCERIDES 52 MG/DL (42-150)
[2018-02-26] MEDS: NICOTINE 21 MG/24 HR PATCH T-DERMAL SCH (09:00)
[2018-02-26 17:09] LABS: HEMOGLOBIN A1C 4.3 % (4.3-6.0)
--- NOTE | 2018-02-26 17:14 | HHI.PYPN ---
Subjective Chief Complaint: Psychosis Remarks Patient initially seen by Dr. Daniel Jordan's H&P reviewed and agreed with. Dr. Jordan also did first opinion petition supporting Page act. I have finished the initial psychiatric template orders in the review of the med reconciliation. Patient seen by me with nurse soni and medical student Laverne. Patient labile and tearful somewhat depressed and psychotic with auditory hallucinations. She shows little to no insight into this at the present time. I do agree with Dr. Jordan thus I will cosign second opinion petition supporting Page act Review of Systems Except as stated in HPI: all other systems reviewed are Neg Mental Status Examination Appearance: Dirty, Disheveled Consciousness: Alert Orientation: Person Motor Activity: Normal gait Speech: Slow Language: Other (Rambling) Fund of Knowledge: Inadequate Attention and Concentration: Easily Distracted Memory: Impaired (Psychosis interferes) Mood: Other (Mildly dysphoric) Affect: Flat Thought Process & Associations: Disorganized Thought Content: Hallucinations, Preoccupations, Delusional Hallucination Type: Other (Responding to internal stimuli) Delusion Type: Paranoid, Other (Quaker, ideas of reference) Suicidal Ideation: No (Unreliable to contract for safety) Homicidal Ideation: No (Unreliable to contract for safety) Insight: Poor Judgment: Poor Results Labs Test 02/25/18 17:42 02/26/18 06:51 Erythrocyte Sedimentation Rate 5 mm/hr Ammonia 28 MCMOL/L Vitamin B12 Level GREATER THAN 2000 PG/ML Folate GREATER THAN 20.0 NG/ML Rapid Plasma Reagin NON-REACTIVE HIV (1&2) Ab and P24 Ag, 4th Gener NONREACTIVE Triglycerides Level 52 MG/DL Cholesterol Level 126 MG/DL LDL Cholesterol 64 MG/DL HDL Cholesterol 52.0 MG/DL Cholesterol/HDL Ratio 2.42 RATIO Date/Time Source Procedure Growth Status 02/25/18 00:15 Urine Clean Catch Urine Culture - Preliminary Gram Negative Tobias Resulted Vitals/IOs Vital Signs Date Time Temp Pulse Resp B/P (MAP) Pulse Ox O2 Delivery O2 Flow Rate FiO2 02/26/18 06:04 97.3 81 16 113/61 (78) 100 02/25/18 02:22 Room Air Assessment & Plan Problem List: (1) Brief psychotic disorder ICD Codes: F23 - Brief psychotic disorder (2) Cannabis abuse ICD Codes: F12.10 - Cannabis abuse, uncomplicated Assessment & Plan Estimated LOS: 5-7 days patient remained psychotic at this time also somewhat tearful. Showing no insight. For now continue treatment Justification for Cont. Inpt. At this time patient would decompensate a place a lower level of care Discharge Planning To be determined Request HC Surrog/Guard Advoc?: Yes Kentrell Harepr MD Feb 26, 2018 17:14
[2018-02-26] MEDS: REMOVE OLD NICOTINE PATCH T-DERMAL SCH (20:32)
[2018-02-27 06:18] VITALS: BP 132/80; PULSE 89; RESP 16; TEMP 97.9
[2018-02-27] MEDS: hydrOXYzine HCL 50 MG TAB PO PRN (14:14)
[2018-02-27] MEDS ORDERED: ZIPRASIDONE MESYLATE 20 MG VIAL IM PRN (15:30)
--- NOTE | 2018-02-27 16:49 | HHI.PYPN ---
Subjective Chief Complaint: Psychosis Remarks Reviewed electronic medical record and discuss case with staff. Patient was found sitting in the day room holding hands with a recently admitted patient. When she was asked to come to her room for follow-up she attempted to test the other patients on the mouth. She had to be redirected once again to come to her room for follow-up. Throughout the follow-up the patient exhibited in expansive mood. When questioned as to why she would attempt to kill someone she had just met she stated, "I know him he is my ". This is not a true statement. When asked how she slept she reported that she "took a while to get to sleep but then I slept good". She states that her appetite is been up and down. I was able to reach her aunt by telephone who put me in touch with the patient's father. He has agreed to act as her surrogate. Consent was obtained to initiate psycho pharmacotherapy. Mental Status Examination Appearance: Dirty, Disheveled Consciousness: Alert Orientation: Person Motor Activity: Normal gait Speech: Slow Language: Other (Rambling) Fund of Knowledge: Inadequate Attention and Concentration: Easily Distracted Memory: Impaired (Psychosis interferes) Mood: Other (Mildly dysphoric) Affect: Flat Thought Process & Associations: Disorganized Thought Content: Hallucinations, Preoccupations, Delusional Hallucination Type: Other (Responding to internal stimuli) Delusion Type: Paranoid, Other (Nondenominational, ideas of reference) Suicidal Ideation: No (Unreliable to contract for safety) Homicidal Ideation: No (Unreliable to contract for safety) Insight: Poor Judgment: Poor Results Labs Date/Time Source Procedure Growth Status 02/25/18 00:15 Urine Clean Catch Urine Culture - Final Escherichia Coli Multi-Drug Resistant Proteus Mirabilis Complete Vitals/IOs Vital Signs Date Time Temp Pulse Resp B/P (MAP) Pulse Ox O2 Delivery O2 Flow Rate FiO2 02/27/18 06:18 97.9 89 16 132/80 (97) 02/26/18 06:04 100 02/25/18 02:22 Room Air Assessment & Plan Problem List: (1) Brief psychotic disorder ICD Codes: F23 - Brief psychotic disorder (2) Cannabis abuse ICD Codes: F12.10 - Cannabis abuse, uncomplicated Assessment & Plan Estimated LOS: Patient will start on medications today. Continue with treatment plan. Days Justification for Cont. Inpt. Moving this patient to a lower level of care would result in decompensation she continues to be impulsive and exhibited bizarre behavior. Request HC Surrog/Guard Advoc?: Yes Caryn Foss Feb 27, 2018 16:49
[2018-02-27] MEDS: ZIPRASIDONE HCL 40 MG CAP PO SCH (20:42)
[2018-02-28 05:20] VITALS: BP 119/69; PULSE 77; RESP 18; TEMP 97.5; O2SAT 97
--- NOTE | 2018-02-28 15:55 | HHI.PYPN ---
Subjective Chief Complaint: Psychosis Remarks Patient was seen and case discussed with nursing. Patient remains erratic and bizarre. She has been doing airplane dances in the hallway. She has increased energy and pressured speech and mood is quite elevated. Insight is poor. She was just transferred back to the 2700 unit after the patient she was kissing had left. Patient denies suicidal or homicidal ideation intent or plan Mental Status Examination Appearance: Disheveled Consciousness: Alert Orientation: Person Motor Activity: Normal gait Speech: Pressured, Rapid Language: Other (Rambling) Fund of Knowledge: Inadequate Attention and Concentration: Easily Distracted Memory: Impaired (Psychosis interferes) Mood: Other (Mildly dysphoric) Affect: Labile Thought Process & Associations: Disorganized Thought Content: Hallucinations, Preoccupations, Delusional Hallucination Type: Other (Responding to internal stimuli) Delusion Type: Paranoid, Other (Baptist, ideas of reference) Suicidal Ideation: No (Unreliable to contract for safety) Homicidal Ideation: No (Unreliable to contract for safety) Insight: Poor Judgment: Poor Results Labs Date/Time Source Procedure Growth Status 02/25/18 00:15 Urine Clean Catch Urine Culture - Final Escherichia Coli Multi-Drug Resistant Proteus Mirabilis Complete Vitals/IOs Vital Signs Date Time Temp Pulse Resp B/P (MAP) Pulse Ox O2 Delivery O2 Flow Rate FiO2 02/28/18 05:20 97.5 77 18 119/69 (86) 97 02/25/18 02:22 Room Air Intake and Output 02/28/18 02/28/18 03/01/18 08:00 16:00 00:00 Intake Total 120 ml 240 ml Balance 120 ml 240 ml Assessment & Plan Problem List: (1) Brief psychotic disorder ICD Codes: F23 - Brief psychotic disorder (2) Cannabis abuse ICD Codes: F12.10 - Cannabis abuse, uncomplicated Assessment & Plan Continue current treatment plan Justification for Cont. Inpt. Patient would decompensate in a less restrictive setting Request HC Surrog/Guard Advoc?: Yes Hesham Brown DO Feb 28, 2018 15:55
[2018-02-28 18:00] VITALS: BP 128/80; PULSE 94; RESP 17; TEMP 97.9; O2SAT 100
[2018-02-28] MEDS: ZIPRASIDONE HCL 40 MG CAP PO SCH (21:00)
[2018-03-01 06:10] VITALS: BP 115/60; PULSE 90; RESP 16; TEMP 98; O2SAT 97
--- NOTE | 2018-03-01 11:21 | HHI.PYPN ---
Subjective Chief Complaint: Psychosis Remarks Patient was seen and case discussed with nursing. Patient remains internally stimulated. She is intrusive and childlike. Making occasional bizarre statements. She does deny auditory or visual hallucinations. Less psychomotor agitation. Denies suicidal or homicidal ideation intent or plan. Social on the unit Mental Status Examination Appearance: Disheveled Consciousness: Alert Orientation: Person Motor Activity: Normal gait Speech: Pressured, Rapid Language: Other (Rambling) Fund of Knowledge: Inadequate Attention and Concentration: Easily Distracted Memory: Impaired (Psychosis interferes) Mood: Other (Mildly dysphoric) Affect: Labile Thought Process & Associations: Disorganized Thought Content: Hallucinations, Preoccupations, Delusional Hallucination Type: Other (Responding to internal stimuli) Delusion Type: Paranoid, Other (Orthodoxy, ideas of reference) Suicidal Ideation: No (Unreliable to contract for safety) Suicidal Plan: No Suicidal Intention: No Homicidal Ideation: No (Unreliable to contract for safety) Insight: Poor Judgment: Poor Results Labs Date/Time Source Procedure Growth Status 02/25/18 00:15 Urine Clean Catch Urine Culture - Final Escherichia Coli Multi-Drug Resistant Proteus Mirabilis Complete Vitals/IOs Vital Signs Date Time Temp Pulse Resp B/P (MAP) Pulse Ox O2 Delivery O2 Flow Rate FiO2 03/01/18 06:10 98.0 90 16 115/60 (78) 97 Assessment & Plan Problem List: (1) Brief psychotic disorder ICD Codes: F23 - Brief psychotic disorder (2) Cannabis abuse ICD Codes: F12.10 - Cannabis abuse, uncomplicated Assessment & Plan Consider increasing Geodon dose Justification for Cont. Inpt. Patient would decompensate in a less restrictive setting Request HC Surrog/Guard Advoc?: Yes Hesham Brown DO Mar 01, 2018 11:21
[2018-03-01] MEDS: hydrOXYzine HCL 50 MG TAB PO PRN (11:25)
[2018-03-01] MEDS: ZIPRASIDONE HCL 40 MG CAP PO SCH ×2 (11:30→18:00)
[2018-03-01] MEDS ORDERED: ZIPRASIDONE HCL 40 MG CAP PO SCH ×2 (21:00)
[2018-03-02] MEDS: diphenhydrAMINE HCL 50 MG CAP - HS PRN PO (05:24)
[2018-03-02 06:11] VITALS: BP 125/67; PULSE 83; RESP 17; TEMP 97.6; O2SAT 98
[2018-03-02] MEDS: ZIPRASIDONE HCL 40 MG CAP PO SCH ×2 (08:31→18:12)
--- NOTE | 2018-03-02 11:39 | HHI.PYPN ---
Subjective Chief Complaint: Psychosis Remarks Patient seen in day room with nurse Ag, chart reviewed, patient complaint medications. Patient continues somewhat intense and intrusive though calmer than before the weekend. She does deny voices or visions at the present time does deny suicidality the medication Geodon was increased over the weekend I agree with that increase. For now continue treatment Review of Systems Except as stated in HPI: all other systems reviewed are Neg Mental Status Examination Appearance: Disheveled Consciousness: Alert Orientation: Person Motor Activity: Normal gait Speech: Pressured, Rapid Language: Other (Rambling) Fund of Knowledge: Inadequate Attention and Concentration: Easily Distracted Memory: Impaired (Psychosis interferes) Mood: Other (Mildly dysphoric) Affect: Labile Thought Process & Associations: Disorganized Thought Content: Hallucinations, Preoccupations, Delusional Hallucination Type: Other (Responding to internal stimuli) Delusion Type: Paranoid, Other (Spiritism, ideas of reference) Suicidal Ideation: No (Unreliable to contract for safety) Suicidal Plan: No Suicidal Intention: No Homicidal Ideation: No (Unreliable to contract for safety) Insight: Poor Judgment: Poor Results Labs Date/Time Source Procedure Growth Status 02/25/18 00:15 Urine Clean Catch Urine Culture - Final Escherichia Coli Multi-Drug Resistant Proteus Mirabilis Complete Vitals/IOs Vital Signs Date Time Temp Pulse Resp B/P (MAP) Pulse Ox O2 Delivery O2 Flow Rate FiO2 03/02/18 06:11 97.6 83 17 125/67 (86) 98 Assessment & Plan Problem List: (1) Brief psychotic disorder ICD Codes: F23 - Brief psychotic disorder (2) Cannabis abuse ICD Codes: F12.10 - Cannabis abuse, uncomplicated Assessment & Plan Estimated LOS: days patient's psychosis is slowly resolving, she is calmer more cooperative, complaint medications, feels with medications is helping her. For now continue treatment Justification for Cont. Inpt. At this time patient would decompensate a place to a lower level of care Discharge Planning To be determined among various family members Request HC Surrog/Guard Advoc?: Yes Kentrell Harper MD Mar 02, 2018 11:39
[2018-03-02 15:52] VITALS: BP 118/65; PULSE 107; RESP 18; TEMP 98.8; O2SAT 99
[2018-03-03 05:54] VITALS: BP 123/68; PULSE 78; RESP 18; TEMP 97.8; O2SAT 98
[2018-03-03] MEDS: ZIPRASIDONE HCL 40 MG CAP PO SCH (08:18)
--- NOTE | 2018-03-03 10:51 | HHI.PYPN ---
Subjective Chief Complaint: Psychosis Remarks Patient seen in day room with nurse Caryn, chart reviewed, patient compliant medication. Patient continues markedly disorganized and paranoid. Most stating with various articles of clothing she notices she perceives is dried blood and minute points of red blood in her leggings and underwear. She also has noticed specks at the bottom of her glasses of water that she feels are " the shakes" she is also afraid to be barefoot in the shower because things could commitment through her feet. Staff is also noted her mumbling gibberish in her room at times. We will increase Geodon to 60 mg twice daily Review of Systems Except as stated in HPI: all other systems reviewed are Neg Mental Status Examination Appearance: Disheveled Consciousness: Alert Orientation: Person Motor Activity: Normal gait Speech: Pressured, Rapid Language: Other (Rambling) Fund of Knowledge: Inadequate Attention and Concentration: Easily Distracted Memory: Impaired (Psychosis interferes) Mood: Other (Mildly dysphoric) Affect: Labile Thought Process & Associations: Disorganized Thought Content: Hallucinations, Preoccupations, Delusional Hallucination Type: Other (Responding to internal stimuli) Delusion Type: Paranoid, Other (Gnosticism, ideas of reference) Suicidal Ideation: No (Unreliable to contract for safety) Suicidal Plan: No Suicidal Intention: No Homicidal Ideation: No (Unreliable to contract for safety) Insight: Poor Judgment: Poor Results Labs Date/Time Source Procedure Growth Status 02/25/18 00:15 Urine Clean Catch Urine Culture - Final Escherichia Coli Multi-Drug Resistant Proteus Mirabilis Complete Vitals/IOs Vital Signs Date Time Temp Pulse Resp B/P (MAP) Pulse Ox O2 Delivery O2 Flow Rate FiO2 03/03/18 05:54 97.8 78 18 123/68 (86) 98 Assessment & Plan Problem List: (1) Brief psychotic disorder ICD Codes: F23 - Brief psychotic disorder (2) Cannabis abuse ICD Codes: F12.10 - Cannabis abuse, uncomplicated Assessment & Plan Estimated LOS: days patient remains quite psychotic delusional paranoid see medication adjustment above Justification for Cont. Inpt. At this time patient would decompensate if placed in a lower level of care Discharge Planning To be determined Request HC Surrog/Guard Advoc?: Yes Kentrell Harper MD Mar 03, 2018 10:51
[2018-03-03] MEDS: ZIPRASIDONE HCL 60 MG CAP PO SCH (17:26)
[2018-03-03 17:30] VITALS: BP 123/63; PULSE 72; RESP 17; TEMP 97.2; O2SAT 99
[2018-03-04 06:09] VITALS: BP 118/72; PULSE 87; RESP 18; TEMP 97.6; O2SAT 99
[2018-03-04 08:11] LABS: BACTERIA, URINE OCC /hpf; BILIRUBIN, URINE NEG (NEG); BLOOD, URINE MOD (NEG); CALCIUM OXALATE CRYSTALS,URINE RARE /hpf; GLUCOSE,URINE NEG (NEG); KETONE, URINE NEG (NEG); MUCUS URINE MANY /lpf (OCC); NITRITE,URINE POS (NEG); SQUAMOUS EPITHELIAL CELL URINE 14 /hpf (0-5); URINE COLOR YELLOW (YELLW/STRAW); URINE LEUKOCYTE ESTERASE LARGE (NEG)
[2018-03-04] MEDS: ZIPRASIDONE HCL 60 MG CAP PO SCH ×2 (08:46→18:00)
--- NOTE | 2018-03-04 10:52 | PD.CONS ---
HPI Service [facility] Consult Requested By Reason for Consult UTI Primary Care Physician Estevan Patricio DO Diagnoses: History of Present Illness 22-year-old female with a past medical history significant for HPV, frequent urinary tract infections, and recently treated C. difficile who presented to the emergency department accompanied by family with concerns over patient's altered mentation. According to ER documentation patient had apparently been living with a boyfriend in the [facility] for over a month and moved back over in with her grandmother who had noticed patient with erratic behavior. H have been consulted to assist with management of possible UTI. Patient is seen and examined in her room, calm and cooperative, appears to be in no acute distress. Patient reports that she will frequently get urinary tract infections and that her last urinary tract infection was about a year ago. She denies any recent fevers, chills, nausea, vomiting, diarrhea, shortness of breath, cough, headache, dizziness or chest pain. She does tell me that she was supposed to be on a probiotic following treatment of her C. difficile. She reports dysuria this morning, denies any frequency, or hematuria. She voices no other acute complaints or concerns at this moment. Review of Systems Except as stated in HPI: all other systems reviewed are Neg Past Family Social History Allergies: Coded Allergies: No Known Allergies (Unverified , 02/24/18) Past Medical History HPV Frequent UTIs Past Surgical History LEEP Reported Medications Reported Meds & Active Scripts Active No Active Prescriptions or Reported Medications Active Ordered Medications Current Medications Medications (Trade) Dose Ordered Sig/Arabella Route Start Time Stop Time Status Last Admin (Benadryl) 50 mg HS PRN PO 02/25/18 06:30 03/02/18 05:24 (Benadryl Inj) 50 mg HS PRN IM 02/25/18 06:30 (Tylenol) 650 mg Q4H PRN PO 02/25/18 06:30 (Milk Of Magnesia Liq) 30 ml DAILY PRN PO 02/25/18 06:30 (Mag-Al Plus Susp Liq) 30 ml Q6H PRN PO 02/25/18 06:30 (Atarax) 50 mg Q6H PRN PO 02/26/18 17:15 03/01/18 11:25 (Geodon Inj) 10 mg HS PRN IM 02/27/18 15:30 (Geodon) 60 mg BIDPC PO 03/03/18 18:00 03/04/18 08:46 (Ceftin) 500 mg Q12H PO 03/04/18 11:00 03/04/18 11:00 (Pyridium) 100 mg Q8HR PO 03/04/18 14:00 03/04/18 12:04 (Lactinex) 1 tab Q12H PO 03/04/18 14:00 03/04/18 12:04 Family History Father: [place] Social History Tobacco: Denies Alcohol use: Occasional Illicit drug use: Marijuana occasionally Physical Exam Vital Signs Vital Signs Date Time Temp Pulse Resp B/P (MAP) Pulse Ox O2 Delivery O2 Flow Rate FiO2 03/04/18 06:09 97.6 87 18 118/72 (87) 99 03/03/18 17:30 97.2 72 17 123/63 (83) 99 Physical Exam GENERAL: This is a well-nourished, well-developed patient, young female in no acute distress. SKIN: No rashes, ecchymoses or lesions. Cool and dry. HEAD: Atraumatic. Normocephalic. EYES: Pupils equal round and reactive. Extraocular motions intact. No scleral icterus. No injection or drainage. ENT: Nose without bleeding, purulent drainage. Throat without erythema. Uvula midline. Airway patent. NECK: Trachea midline. No JVD. CARDIOVASCULAR: Regular rate and rhythm without murmurs, gallops, or rubs. RESPIRATORY: Clear to auscultation. Breath sounds equal bilaterally. No wheezes , rales, or rhonchi. GASTROINTESTINAL: Abdomen soft, non-tender, nondistended. No guarding.+ Bowel sounds in all quadrants. MUSCULOSKELETAL: Extremities without clubbing, cyanosis, or edema. No joint tenderness, effusion, or edema noted. NEUROLOGICAL: Awake and alert, oriented 3. No cranial nerve deficit noted. Motor and sensory grossly within normal limits. Five out of 5 muscle strength in all muscle groups. Normal speech. Laboratory Laboratory Tests Test 03/04/18 04:24 Urine Color YELLOW Urine Turbidity CLOUDY Urine pH 6.0 Urine Specific [place] 1.023 Urine Protein 30 Urine Glucose (UA) NEG Urine Ketones NEG Urine Occult Blood MOD Urine Nitrite POS Urine Bilirubin NEG Urine Urobilinogen LESS THAN 2 Urine Leukocyte Esterase LARGE Urine RBC 2 Urine WBC Urine Squamous Epithelial Cells 14 Urine Calcium Oxalate Crystals RARE Urine Bacteria OCC Urine Mucus MANY Microscopic Urinalysis Comment CULTURE INDICATED Date/Time Source Procedure Growth Status 03/04/18 04:24 Urine Clean Catch Urine Culture Pending Received Imaging Last Impressions Head CT 02/25/18 0001 Signed Impressions: CONCLUSION: No acute intracranial findings. Assessment and Plan Assessment and Plan 22-year-old female with a past medical history significant for HPV, frequent urinary tract infections, and recently treated C. difficile who presented to the emergency department accompanied by family with concerns over patient's altered mentation. According to ER documentation patient had apparently been living with a boyfriend in the [facility] for over a month and moved back over in with her grandmother who had noticed patient with erratic behavior. [facility] have been consulted to assist with management of possible UTI. Psychotic disorder -Treatment plan per psychiatry, greatly appreciated Urinary tract infection -Patient had a UA completed on 02/25 which was positive for E. coli MDR, and Proteus mirabilis. -Repeat UA today grossly positive, started on p.o. Ceftin as well as Pyridium 100 mg every 8 hours -Follow urine culture and sensitivity DVT prophylaxis-ambulation Thank you for this consultation, will continue to follow along. Discussed Condition With Patient and nurse. Roberta Howard Mar 04, 2018 10:52
[2018-03-04] MEDS: CEFUROXIME AXETIL 500 MG TAB PO SCH ×2 (11:00→23:00)
[2018-03-04] MEDS: LACTOBACILLUS ACIDOPHILUS TAB PO SCH (12:04)
[2018-03-04] MEDS: PHENAZOPYRIDINE HCL 100 MG TAB PO SCH ×2 (12:04→20:53)
--- NOTE | 2018-03-04 14:37 | HHI.PYPN ---
Subjective Chief Complaint: Psychosis Remarks Patient seen in her room with nurse Alejandra, chart reviewed, patient compliant medications. Patient somewhat calmer more focused today will is a lability still present. However she denies suicidality homicidality voices or visions. This this time if the patient has capacity will lift Page act allow patient to sign voluntary continue medications no change Review of Systems Except as stated in HPI: all other systems reviewed are Neg Mental Status Examination Appearance: Disheveled Consciousness: Alert Orientation: Person Motor Activity: Normal gait Speech: Pressured, Rapid Language: Other (Rambling) Fund of Knowledge: Inadequate Attention and Concentration: Easily Distracted Memory: Impaired (Psychosis interferes) Mood: Other (Mildly dysphoric) Affect: Labile Thought Process & Associations: Disorganized Thought Content: Hallucinations, Preoccupations, Delusional Hallucination Type: Other (Responding to internal stimuli) Delusion Type: Paranoid, Other (Pentecostalism, ideas of reference) Suicidal Ideation: No (Unreliable to contract for safety) Suicidal Plan: No Suicidal Intention: No Homicidal Ideation: No (Unreliable to contract for safety) Insight: Poor Judgment: Poor Results Labs Test 03/04/18 04:24 Urine Color YELLOW Urine Turbidity CLOUDY Urine pH 6.0 Urine Specific [place] 1.023 Urine Protein 30 mg/dL Urine Glucose (UA) NEG mg/dL Urine Ketones NEG mg/dL Urine Occult Blood MOD Urine Nitrite POS Urine Bilirubin NEG Urine Urobilinogen LESS THAN 2 mg/dL Urine Leukocyte Esterase LARGE Urine RBC 2 /hpf Urine WBC /hpf Urine Squamous Epithelial Cells 14 /hpf Urine Calcium Oxalate Crystals RARE /hpf Urine Bacteria OCC /hpf Urine Mucus MANY /lpf Microscopic Urinalysis Comment CULTURE INDICATED Date/Time Source Procedure Growth Status 03/04/18 04:24 Urine Clean Catch Urine Culture Pending Received Vitals/IOs Vital Signs Date Time Temp Pulse Resp B/P (MAP) Pulse Ox O2 Delivery O2 Flow Rate FiO2 03/04/18 06:09 97.6 87 18 118/72 (87) 99 Assessment & Plan Problem List: (1) Brief psychotic disorder ICD Codes: F23 - Brief psychotic disorder (2) Cannabis abuse ICD Codes: F12.10 - Cannabis abuse, uncomplicated Assessment & Plan Estimated LOS: days patient's psychosis is slowly resolving, she is more cooperative and pleasant. At this time feel patient has capacity lift Page act allow patient to sign voluntary Justification for Cont. Inpt. At this time patient would decompensate a place to a lower level of care Discharge Planning To be determined Request HC Surrog/Guard Advoc?: Yes Kentrell Harper MD Mar 04, 2018 14:37
[2018-03-04 16:42] VITALS: BP 119/82; PULSE 81; RESP 16; TEMP 97.6; O2SAT 99
[2018-03-04] MEDS: hydrOXYzine HCL 50 MG TAB PO PRN (20:53)
[2018-03-05] MEDS: LACTOBACILLUS ACIDOPHILUS TAB PO SCH ×3 (02:03→17:58)
[2018-03-05 06:10] VITALS: BP 127/73; PULSE 97; RESP 16; TEMP 97.1; O2SAT 99
[2018-03-05] MEDS: PHENAZOPYRIDINE HCL 100 MG TAB PO SCH ×3 (06:13→22:00)
[2018-03-05] MEDS: ZIPRASIDONE HCL 60 MG CAP PO SCH (08:33)
[2018-03-05] MEDS: CEFUROXIME AXETIL 500 MG TAB PO SCH ×2 (11:35→23:00)
--- NOTE | 2018-03-05 14:53 | HHI.PR ---
Subjective Remarks Follow-up visit urinary tract infection, HPV, history of C. difficile. Patient seen and examined today. Reports she is doing well. Denies any dysuria, discharge, fevers, chills, nausea, vomiting, diarrhea. Denies any pain or discomfort. Denies any headaches, chest pain, palpitations, dizziness. Objective Vitals Vital Signs Date Time Temp Pulse Resp B/P (MAP) Pulse Ox O2 Delivery O2 Flow Rate FiO2 03/05/18 06:10 97.1 97 16 127/73 (91) 99 03/04/18 16:42 97.6 81 16 119/82 (94) 99 Imaging Last Impressions Head CT 02/25/18 0001 Signed Impressions: CONCLUSION: No acute intracranial findings. Objective Remarks GENERAL: This is a well-nourished, well-developed patient, in no apparent distress. SKIN: Warm and dry. HEENT: Normocephalic. Pupils equal round and reactive. Nose without bleeding. Airway patent. NECK: Trachea midline. No JVD. Supple. CARDIOVASCULAR: Regular rate and rhythm without murmurs, gallops, or rubs. RESPIRATORY: Clear to auscultation. Breath sounds equal bilaterally. No wheezes , rales, or rhonchi. GASTROINTESTINAL: Abdomen soft, non-tender, nondistended. Bowel Sounds normoactive x4 MUSCULOSKELETAL: Extremities without clubbing, cyanosis, or edema. NEUROLOGICAL: Awake and alert. Oriented to time, place, person. No focal neuro deficit. Moves all extremities. Slow speech. Flat affect A/P Assessment and Plan 22-year-old female with a past medical history significant for HPV, frequent urinary tract infections, and recently treated C. difficile who presented to the emergency department accompanied by family with concerns over patient's altered mentation. According to ER documentation patient had apparently been living with a boyfriend in the [facility] for over a month and moved back over in with her grandmother who had noticed patient with erratic behavior. [facility] have been consulted to assist with management of possible UTI. Psychotic disorder -Treatment plan per psychiatry, greatly appreciated Urinary tract infection -Patient had a UA completed on 02/25 which was positive for E. coli MDR, and Proteus mirabilis. -Repeat UA positive, started on p.o. Ceftin as well as Pyridium 100 mg every 8 hours -Follow urine culture and sensitivity. Pending for now microbiology has been called. Discussed with patient to continue with the Ceftin for now, Lactinex. History of C. difficile -No diarrhea reported. Continue with Lactinex DVT prophylaxis-ambulation Abraham Stone Mar 05, 2018 14:53
--- NOTE | 2018-03-05 17:12 | HHI.PYPN ---
Subjective Chief Complaint: Psychosis Remarks Patient seen in her room with nurse Alejandra, patient alert and tense fairly superficial and somewhat childlike well making responses are somewhat fantasy in nature patient is doing stereotypic movements of both her hands and feet S of wine being a school of thread are peddling on a bicycle Review of Systems Except as stated in HPI: all other systems reviewed are Neg Mental Status Examination Appearance: Disheveled Consciousness: Alert Orientation: Person Motor Activity: Normal gait Speech: Pressured, Rapid Language: Other (Rambling) Fund of Knowledge: Inadequate Attention and Concentration: Easily Distracted Memory: Impaired (Psychosis interferes) Mood: Other (Mildly dysphoric) Affect: Labile Thought Process & Associations: Disorganized Thought Content: Hallucinations, Preoccupations, Delusional Hallucination Type: Other (Responding to internal stimuli) Delusion Type: Paranoid, Other (Yazidism, ideas of reference) Suicidal Ideation: No (Unreliable to contract for safety) Suicidal Plan: No Suicidal Intention: No Homicidal Ideation: No (Unreliable to contract for safety) Insight: Poor Judgment: Poor Results Labs Date/Time Source Procedure Growth Status 03/04/18 04:24 Urine Clean Catch Urine Culture - Preliminary Gram Negative Tobias Resulted Vitals/IOs Vital Signs Date Time Temp Pulse Resp B/P (MAP) Pulse Ox O2 Delivery O2 Flow Rate FiO2 03/05/18 06:10 97.1 97 16 127/73 (91) 99 Assessment & Plan Problem List: (1) 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 With no insight. We will increase Geodon to 80 mg twice daily Justification for Cont. Inpt. At this time patient would decompensate a place to the lower level of care Discharge Planning To be determined Request HC Surrog/Guard Advoc?: Yes Kentrell Harper MD Mar 05, 2018 17:12
[2018-03-05] MEDS: ZIPRASIDONE HCL 80 MG CAP PO SCH (17:58)
[2018-03-05 18:04] VITALS: BP 106/58; PULSE 82; RESP 17; TEMP 98; O2SAT 99
[2018-03-06] MEDS: PHENAZOPYRIDINE HCL 100 MG TAB PO SCH ×3 (05:40→21:34)
[2018-03-06 05:58] VITALS: BP 119/70; PULSE 90; RESP 16; TEMP 97.6; O2SAT 99
[2018-03-06] MEDS: CEFUROXIME AXETIL 500 MG TAB PO SCH ×2 (08:53→22:50)
[2018-03-06] MEDS: ZIPRASIDONE HCL 80 MG CAP PO SCH ×2 (08:53→17:30)
[2018-03-06] MEDS: LACTOBACILLUS ACIDOPHILUS TAB PO SCH ×3 (08:55→17:29)
--- NOTE | 2018-03-06 13:41 | HHI.PR ---
Subjective Remarks Follow-up visit recurrent urinary tract infection, HPV, history of C. difficile. Patient seen and examined today. Reports she is doing well. States that she stay hydrated drinking milk, water, juices. Denies any dysuria. Discussed with patient she will continue to take Ceftin until complete date based on the culture sensitivities. Verbalized understanding. Denies pain and discomfort. Denies SOB/ dyspnea. Denies chest pain, palpitations, headaches, dizziness. Denies fevers, chills, n/v/d. Denies hematuria, dysuria. Objective Vitals Vital Signs Date Time Temp Pulse Resp B/P (MAP) Pulse Ox O2 Delivery O2 Flow Rate FiO2 03/06/18 05:58 97.6 90 16 119/70 (86) 99 03/05/18 18:04 98.0 82 17 106/58 (74) 99 Imaging Last Impressions Head CT 02/25/18 0001 Signed Impressions: CONCLUSION: No acute intracranial findings. Objective Remarks GENERAL: This is a well-nourished, well-developed patient, in no apparent distress. SKIN: Warm and dry. HEENT: Normocephalic. Pupils equal round and reactive. Nose without bleeding. Airway patent. NECK: Trachea midline. No JVD. Supple. CARDIOVASCULAR: Regular rate and rhythm without murmurs, gallops, or rubs. RESPIRATORY: Clear to auscultation. Breath sounds equal bilaterally. No wheezes , rales, or rhonchi. GASTROINTESTINAL: Abdomen soft, non-tender, nondistended. Bowel Sounds normoactive x4 MUSCULOSKELETAL: Extremities without clubbing, cyanosis, or edema. NEUROLOGICAL: Awake and alert. Oriented to time, place, person. No focal neuro deficit. Moves all extremities. Slow speech. Flat affect A/P Assessment and Plan 22-year-old female with a past medical history significant for HPV, frequent urinary tract infections, and recently treated C. difficile who presented to the emergency department accompanied by family with concerns over patient's altered mentation. According to ER documentation patient had apparently been living with a boyfriend in the [facility] for over a month and moved back over in with her grandmother who had noticed patient with erratic behavior. [facility] have been consulted to assist with management of possible UTI. Psychotic disorder -Treatment plan per psychiatry, greatly appreciated Urinary tract infection -Patient had a UA completed on 02/25 which was positive for E. coli MDR, and Proteus mirabilis. -Repeat UA positive, started on p.o. Ceftin as well as Pyridium 100 mg every 8 hours -Orr sensitive. Continue Ceftin until completed. History of C. difficile -No diarrhea reported. Continue with Lactinex DVT prophylaxis-ambulation Stable from Hospitalist standpoint. We will sign off. Reconsult as needed. Abraham Stone [facility] Mar 06, 2018 13:41
--- NOTE | 2018-03-06 14:49 | HHI.PYPN ---
Subjective Chief Complaint: Psychosis Remarks Patient seen the cope with nurse Mio, chart reviewed, patient compliant medications. Patient continues somewhat silly delusional continues with stereotypic movements, saying that she loves being here she loves her room and the food and the people security and she loves all with staff. Review of Systems Except as stated in HPI: all other systems reviewed are Neg Mental Status Examination Appearance: Disheveled Consciousness: Alert Orientation: Person Motor Activity: Normal gait Speech: Pressured, Rapid Language: Other (Rambling) Fund of Knowledge: Inadequate Attention and Concentration: Easily Distracted Memory: Impaired (Psychosis interferes) Mood: Other (Mildly dysphoric) Affect: Labile Thought Process & Associations: Disorganized Thought Content: Hallucinations, Preoccupations, Delusional Hallucination Type: Other (Responding to internal stimuli) Delusion Type: Paranoid, Other (Voodoo, ideas of reference) Suicidal Ideation: No (Unreliable to contract for safety) Suicidal Plan: No Suicidal Intention: No Homicidal Ideation: No (Unreliable to contract for safety) Insight: Poor Judgment: Poor Results Labs Date/Time Source Procedure Growth Status 03/04/18 04:24 Urine Clean Catch Urine Culture - Final Proteus Mirabilis Complete Vitals/IOs Vital Signs Date Time Temp Pulse Resp B/P (MAP) Pulse Ox O2 Delivery O2 Flow Rate FiO2 03/06/18 05:58 97.6 90 16 119/70 (86) 99 Assessment & Plan Problem List: (1) Brief psychotic disorder ICD Codes: F23 - Brief psychotic disorder (2) Cannabis abuse ICD Codes: F12.10 - Cannabis abuse, uncomplicated Assessment & Plan Estimated LOS: days patient continues psychotic superficial silly and somewhat childlike. For now continue treatment Justification for Cont. Inpt. At this time patient would decompensate a place to a lower level of care Discharge Planning To be determined Request HC Surrog/Guard Advoc?: Yes Kentrell Harper MD Mar 06, 2018 14:49
[2018-03-06 18:27] VITALS: BP 118/66; PULSE 109; RESP 17; TEMP 97.1; O2SAT 98
[2018-03-07] MEDS: PHENAZOPYRIDINE HCL 100 MG TAB PO SCH ×3 (06:28→21:38)
[2018-03-07 06:42] VITALS: BP 122/71; PULSE 86; RESP 20; TEMP 98.4; O2SAT 98
[2018-03-07] MEDS: ZIPRASIDONE HCL 80 MG CAP PO SCH ×2 (08:54→18:00)
[2018-03-07] MEDS: LACTOBACILLUS ACIDOPHILUS TAB PO SCH ×3 (08:54→18:00)
[2018-03-07] MEDS: CEFUROXIME AXETIL 500 MG TAB PO SCH ×2 (11:00→23:07)
--- NOTE | 2018-03-07 17:09 | HHI.PYPN ---
Subjective Chief Complaint: Psychosis Remarks Reviewed electronic medical record discussed case with staff. Patient follow- up conducted in [facility]. She still appears to be delusional as she is referring to her "real has been Ulysseus". Patient states that she lived with him prior to being admitted and I believe she lives with her grandmother have to investigate. Patient speech does seem to be less pressured. She is discharged focused at this time. Mental Status Examination Appearance: Disheveled Consciousness: Alert Orientation: Person Motor Activity: Normal gait Speech: Pressured, Rapid Language: Other (Rambling) Fund of Knowledge: Inadequate Attention and Concentration: Easily Distracted Memory: Impaired (Psychosis interferes) Mood: Other (Mildly dysphoric) Affect: Labile Thought Process & Associations: Disorganized Thought Content: Hallucinations, Preoccupations, Delusional Hallucination Type: Other (Responding to internal stimuli) Delusion Type: Paranoid, Other (Orthodox, ideas of reference) Suicidal Ideation: No (Unreliable to contract for safety) Suicidal Plan: No Suicidal Intention: No Homicidal Ideation: No (Unreliable to contract for safety) Insight: Poor Judgment: Poor Results Labs Date/Time Source Procedure Growth Status 03/04/18 04:24 Urine Clean Catch Urine Culture - Final Proteus Mirabilis Complete Vitals/IOs Vital Signs Date Time Temp Pulse Resp B/P (MAP) Pulse Ox O2 Delivery O2 Flow Rate FiO2 03/07/18 06:42 98.4 86 20 122/71 (88) 98 Assessment & Plan Problem List: (1) Brief psychotic disorder ICD Codes: F23 - Brief psychotic disorder (2) Cannabis abuse ICD Codes: F12.10 - Cannabis abuse, uncomplicated Assessment & Plan Estimated LOS: Patient still seems to have some symptoms present. Continue with current treatment plan days Justification for Cont. Inpt. Moving this patient to a less restrictive environment would result in decompensation Request HC Surrog/Guard Advoc?: Yes Caryn Foss Mar 07, 2018 17:09
[2018-03-07 18:38] VITALS: BP 119/57; PULSE 104; RESP 20; TEMP 98.2; O2SAT 98
[2018-03-08] VITALS (7 sets, daily range): BP systolic 88–143; BP diastolic 50–70; PULSE 44–100; RESP 16–20; TEMP 97.9–98.8; O2SAT 98–99
[2018-03-08] MEDS: PHENAZOPYRIDINE HCL 100 MG TAB PO SCH ×3 (06:41→22:00)
--- NOTE | 2018-03-08 08:33 | HHI.PYPN ---
Subjective Chief Complaint: Psychosis Remarks Reviewed electronic medical record and discussed case with staff. Patient reports that she slept well and has good appetite. She denies any side effects from the medication. She remains delusional believing that she has a named Bharat. Mental Status Examination Appearance: Disheveled Consciousness: Alert Orientation: Person Motor Activity: Normal gait Speech: Pressured, Rapid Language: Other (Rambling) Fund of Knowledge: Inadequate Attention and Concentration: Easily Distracted Memory: Impaired (Psychosis interferes) Mood: Other (Mildly dysphoric) Affect: Labile Thought Process & Associations: Disorganized Thought Content: Hallucinations, Preoccupations, Delusional Hallucination Type: Other (Responding to internal stimuli) Delusion Type: Paranoid, Other (Mosque, ideas of reference) Suicidal Ideation: No (Unreliable to contract for safety) Suicidal Plan: No Suicidal Intention: No Homicidal Ideation: No (Unreliable to contract for safety) Insight: Poor Judgment: Poor Results Labs Date/Time Source Procedure Growth Status 03/04/18 04:24 Urine Clean Catch Urine Culture - Final Proteus Mirabilis Complete Vitals/IOs Vital Signs Date Time Temp Pulse Resp B/P (MAP) Pulse Ox O2 Delivery O2 Flow Rate FiO2 03/08/18 06:26 98.1 89 17 119/70 (86) 99 Assessment & Plan Problem List: (1) Brief psychotic disorder ICD Codes: F23 - Brief psychotic disorder (2) Cannabis abuse ICD Codes: F12.10 - Cannabis abuse, uncomplicated Assessment & Plan Estimated LOS: Patient continues to be somewhat symptomatic with delusions although I do note some improvement. She will be reevaluated by the attending psychiatrist tomorrow. Days Justification for Cont. Inpt. Moving this patient to a less restrictive environment would likely result in decompensation. Request HC Surrog/Guard Advoc?: Yes Caryn Foss Mar 08, 2018 08:33
[2018-03-08] MEDS: ZIPRASIDONE HCL 80 MG CAP PO SCH (08:45)
[2018-03-08] MEDS: LACTOBACILLUS ACIDOPHILUS TAB PO SCH ×3 (08:45→20:51)
[2018-03-08] MEDS: CEFUROXIME AXETIL 500 MG TAB PO SCH ×2 (11:00→22:00)
[2018-03-08 15:08] LABS: AUTOMATED NEUTROPHIL # 5.6 TH/MM3 (1.8-7.7); BASOPHIL % 0.4 % (0.0-2.0); EOSINOPHIL # 0.1 TH/MM3 (0-0.4); HEMATOCRIT 38.1 % (35.0-46.0); HEMOGLOBIN 13.4 GM/DL (11.6-15.3); LYMPH % 17.6 % (9.0-44.0); LYMPHOCYTE # 1.3 TH/MM3 (1.0-4.8); MEAN CELL VOLUME 93.6 FL (80.0-100.0); MEAN CORPUSCULAR HEMOGLOBIN 32.8 PG (27.0-34.0); MEAN CORPUSCULAR HGB CONC 35.1 % (32.0-36.0); MEAN PLATELET VOLUME 8.5 FL (7.0-11.0); MONO % 6.4 % (0.0-8.0); MONOCYTE # 0.5 TH/MM3 (0-0.9); NEUT % 74.6 % (16.0-70.0); PLATELET COUNT 194 TH/MM3 (150-450); RED BLOOD COUNT 4.07 MIL/MM3 (4.00-5.30); RED CELL DISTRIBUTION WIDTH 12.4 % (11.6-17.2); WHITE BLOOD COUNT 7.4 TH/MM3 (4.0-11.0)
--- NOTE | 2018-03-08 15:23 | HHI.PR ---
Subjective Remarks Reconsulted near syncopal episode. As per nursing, patient was standing and trying to get her medications and told nurse that she was not feeling well and after that according to the nurse patient turned pale, slight drooling noted, lips were gardner and fainted. Patient seen and examined today. Reports that she fainted today and states that she has been bloated and has been passing gas. States that she probably is lactose intolerance. States that people are talking about her because she has been fighting. States that when she fainted she made a "huge fart" saying she needs to "let out all the way." On exam patient states that she is doing a lot better. Denies any shortness of breath or dyspnea, denies change in vision , denies dizziness, denies difficulty speech, unilateral weakness. Denies pain and discomfort Denies chest pain, palpitations, headaches. Denies fevers, chills, n/v/d. Denies hematuria, dysuria. Objective Vitals Vital Signs Date Time Temp Pulse Resp B/P (MAP) Pulse Ox O2 Delivery O2 Flow Rate FiO2 03/08/18 14:23 73 106/65 (79) 98 03/08/18 13:11 98.8 60 100/50 (67) 03/08/18 12:40 76 92/60 (71) 03/08/18 12:35 98.3 44 16 88/50 (63) 98 03/08/18 06:26 98.1 89 17 119/70 (86) 99 03/07/18 18:38 98.2 104 20 119/57 (77) 98 Result Diagram: 03/08/18 1420 Imaging Last Impressions Head CT 02/25/18 0001 Signed Impressions: CONCLUSION: No acute intracranial findings. Objective Remarks GENERAL: This is a well-nourished, well-developed patient, in no apparent distress. SKIN: Warm and dry. HEENT: Normocephalic. Pupils equal round and reactive. Nose without bleeding. Airway patent. NECK: Trachea midline. No JVD. Supple. CARDIOVASCULAR: Regular rate and rhythm without murmurs, gallops, or rubs. RESPIRATORY: Clear to auscultation. Breath sounds equal bilaterally. No wheezes , rales, or rhonchi. GASTROINTESTINAL: Abdomen soft, non-tender, nondistended. Bowel Sounds normoactive x4 MUSCULOSKELETAL: Extremities without clubbing, cyanosis, or edema. NEUROLOGICAL: Awake and alert. Oriented to time, place, person. No focal neuro deficit. Moves all extremities. Slow speech. Flat affect A/P Assessment and Plan 22-year-old female with a past medical history significant for HPV, frequent urinary tract infections, and recently treated C. difficile who presented to the emergency department accompanied by family with concerns over patient's altered mentation. According to ER documentation patient had apparently been living with a boyfriend in the [facility] for over a month and moved back over in with her grandmother who had noticed patient with erratic behavior. [facility] have been consulted to assist with management of possible UTI. Near syncopal episode -Possible vasovagal, patient reports abdominal bloating and gas after drinking milk. She did not feel well and states she made a "big fart" and passed out. -Patient has no medications to cause severe hypotension, bradycardia. -EKG shows sinus bradycardia heart rate of 56, no ST changes noted. -QT 453, QT correction for 444, very slightly prolonged >440 -Check labs, follow results, replace electrolyte imbalances -May need to adjust antipsychotic medications that can cause prolonged QT Psychotic disorder -Treatment plan per psychiatry Urinary tract infection -Patient had a UA completed on 02/25 which was positive for E. coli MDR, and Proteus mirabilis. -Repeat UA positive, started on p.o. Ceftin as well as Pyridium 100 mg every 8 hours -Orr sensitive. Continue Ceftin until completed. History of C. difficile -No diarrhea reported. Continue with Lactinex DVT prophylaxis-ambulation Abraham Stone Mar 08, 2018 15:23
[2018-03-08 15:29] LABS: ALBUMIN 4.1 GM/DL (3.4-5.0); ALT (GPT) 21 U/L (10-53); AST (GOT) 13 U/L (15-37); BICARBONATE 30.4 MEQ/L (21.0-32.0); BLOOD UREA NITROGEN 12 MG/DL (7-18); CALCIUM 8.8 MG/DL (8.5-10.1); CHLORIDE 107 MEQ/L (98-107); CREATININE 0.72 MG/DL (0.50-1.00); GLOMERULAR FILTRATION RATE 100 ML/MIN (>89); GLUCOSE,RANDOM 77 MG/DL (74-106); SODIUM (NA) 142 MEQ/L (136-145)
[2018-03-08 15:31] LABS: ALKALINE PHOSPHATASE 40 U/L (45-117); TOTAL BILIRUBIN ADULT 0.5 MG/DL (0.2-1.0); TOTAL PROTEIN 7.1 GM/DL (6.4-8.2)
[2018-03-08] MEDS: ZIPRASIDONE HCL 60 MG CAP PO SCH (17:30)
[2018-03-09] MEDS: PHENAZOPYRIDINE HCL 100 MG TAB PO SCH (06:10)
[2018-03-09 06:28] VITALS: BP 106/70; PULSE 74; RESP 18; TEMP 97.7; O2SAT 100
[2018-03-09] MEDS: ZIPRASIDONE HCL 60 MG CAP PO SCH (08:07)
[2018-03-09] MEDS: LACTOBACILLUS ACIDOPHILUS TAB PO SCH ×2 (08:08→20:42)
[2018-03-09] MEDS: CEFUROXIME AXETIL 500 MG TAB PO SCH ×2 (10:35→22:36)
--- NOTE | 2018-03-09 15:11 | HHI.PR ---
Subjective Remarks Follow-up visit presyncopal episode possible vasovagal versus daily prolongation. Patient is and examined today reports she was doing well. States that there is no more episodes of fainting and having gas today. Patient started singing all her answers. Denies pain and discomfort. Denies SOB/ dyspnea. Denies chest pain, palpitations, headaches, dizziness. Denies fevers, chills, n/v/d. Denies dysuria. Objective Vitals Vital Signs Date Time Temp Pulse Resp B/P (MAP) Pulse Ox O2 Delivery O2 Flow Rate FiO2 03/09/18 06:28 97.7 74 18 106/70 (82) 100 03/08/18 20:00 97.9 100 20 143/69 (93) 03/08/18 17:03 98.1 70 18 105/56 (72) 99 Result Diagram: 03/08/18 1420 03/08/18 1420 Imaging Last Impressions Head CT 02/25/18 0001 Signed Impressions: CONCLUSION: No acute intracranial findings. Objective Remarks GENERAL: This is a well-nourished, well-developed patient, in no apparent distress. SKIN: Warm and dry. HEENT: Normocephalic. Pupils equal round and reactive. Nose without bleeding. Airway patent. NECK: Trachea midline. No JVD. Supple. Carotids without bruit CARDIOVASCULAR: Regular rate and rhythm without murmurs, gallops, or rubs. RESPIRATORY: Clear to auscultation. Breath sounds equal bilaterally. No wheezes , rales, or rhonchi. GASTROINTESTINAL: Abdomen soft, non-tender, nondistended. Bowel Sounds normoactive x4 MUSCULOSKELETAL: Extremities without clubbing, cyanosis, or edema. NEUROLOGICAL: Awake and alert. Oriented to time, place, person. No focal neuro deficit. Moves all extremities. Normal speech. A/P Assessment and Plan 22-year-old female with a past medical history significant for HPV, frequent urinary tract infections, and recently treated C. difficile who presented to the emergency department accompanied by family with concerns over patient's altered mentation. According to ER documentation patient had apparently been living with a boyfriend in the [facility] for over a month and moved back over in with her grandmother who had noticed patient with erratic behavior. [facility] have been consulted to assist with management of possible UTI. Near syncopal episode Possible vasovagal vs QT prolongation - Patient reports abdominal bloating and gas after drinking milk. She did not feel well and states she made a "big fart" and passed out. -Patient has no medications to cause severe hypotension, bradycardia. -EKG shows sinus bradycardia heart rate of 56, no ST changes noted. -QT 453, QT correction for 444, very slightly prolonged >440 -May need to adjust antipsychotic medications that can cause prolonged QT -Psychiatry have lowered down antipsychotic medication Geodon to 60 mg. Repeat EKG was done QTC has decreased. Spoke with Dr. Harper they will possibly switch her over to a different antipsychotic medication -No episodes of syncope reported Psychotic disorder -Treatment plan per psychiatry -Possible change in psychiatric medication instead of Geodon Urinary tract infection -Patient had a UA completed on 02/25 which was positive for E. coli MDR, and Proteus mirabilis. -Repeat UA positive, started on p.o. Ceftin as well as Pyridium 100 mg every 8 hours -Orr sensitive. Continue Ceftin until completed. History of C. difficile -No diarrhea reported. Continue with Lactinex DVT prophylaxis-ambulation Abraham Stone [facility] Mar 09, 2018 15:11
[2018-03-09] MEDS: ACETAMINOPHEN 325 MG TAB PO PRN (15:27)
--- NOTE | 2018-03-09 15:30 | HHI.PYPN ---
Subjective Chief Complaint: Psychosis Remarks Patient seen in day room with floor staff, chart reviewed, patient compliant medications, patient discussed with nurse. It appears that late yesterday afternoon patient had a hypotensive episode of the fainting spell. Patient was medically assessed and treated it appears her QTc interval increased somewhat they discontinue the evening dose of Geodon. Patient also became hypotensive and somewhat bradycardic. Today when seen by me patient was somewhat intense wanting to be discharged today when I explained the reason why he could not do that she became quite angry irritable and upset. She stormed away from me and walked across the dayroom yelling and screaming. Before she did that when I asked about the fainting episode she said she had not F and F which was a fainting episode and 14. She also told the staff yesterday that it occurred because she was implanting triplets. At this time I will discontinue the Geodon will offer her Resporal 0.5 mg every 12 hours continue to monitor vital signs and cardiac status Review of Systems Except as stated in HPI: all other systems reviewed are Neg Mental Status Examination Appearance: Disheveled Consciousness: Alert Orientation: Person Motor Activity: Normal gait Speech: Pressured, Rapid Language: Other (Rambling) Fund of Knowledge: Inadequate Attention and Concentration: Easily Distracted Memory: Impaired (Psychosis interferes) Mood: Other (Mildly dysphoric) Affect: Labile Thought Process & Associations: Disorganized Thought Content: Hallucinations, Preoccupations, Delusional Hallucination Type: Other (Responding to internal stimuli) Delusion Type: Paranoid, Other (Zoroastrian, ideas of reference) Suicidal Ideation: No (Unreliable to contract for safety) Suicidal Plan: No Suicidal Intention: No Homicidal Ideation: No (Unreliable to contract for safety) Insight: Poor Judgment: Poor Results Labs Date/Time Source Procedure Growth Status 03/04/18 04:24 Urine Clean Catch Urine Culture - Final Proteus Mirabilis Complete Vitals/IOs Vital Signs Date Time Temp Pulse Resp B/P (MAP) Pulse Ox O2 Delivery O2 Flow Rate FiO2 03/09/18 06:28 97.7 74 18 106/70 (82) 100 Assessment & Plan Problem List: (1) Brief psychotic disorder ICD Codes: F23 - Brief psychotic disorder (2) Cannabis abuse ICD Codes: F12.10 - Cannabis abuse, uncomplicated Assessment & Plan Estimated LOS: days patient continues psychotic and delusional also quite labile. She medication adjustment above Justification for Cont. Inpt. At this time patient would decompensate a place to a lower level of care Discharge Planning To be determined Request HC Surrog/Guard Advoc?: Yes Kentrell Harper MD Mar 09, 2018 15:30
[2018-03-09 17:54] VITALS: BP 100/53; PULSE 92; RESP 18; TEMP 97.7; O2SAT 97
--- NOTE | 2018-03-09 23:18 | EKG ---
Date Performed: 03/08/2018 Time Performed: 16:48:14 PTAGE: 22 years EKG: Sinus rhythm WITH SINUS ARRHYTHMIA NORMAL ECG PREVIOUS TRACING : 03/08/2018 14.11 Since the previous tracing, no significant change noted DOCTOR: Neil Rondon Interpretating Date/Time 03/09/2018 23:17:51
[2018-03-09] MEDS: hydrOXYzine HCL 50 MG TAB PO PRN (23:21)
--- NOTE | 2018-03-09 23:30 | EKG ---
Date Performed: 03/08/2018 Time Performed: 14:11:45 PTAGE: 22 years EKG: SINUS BRADYCARDIA WITH SINUS ARRHYTHMIA BORDERLINE ECG PREVIOUS TRACING : 02/24/2018 22.09 Compared to previous tracing, rate now bradycardic DOCTOR: Neil Rondon Interpretating Date/Time 03/09/2018 23:28:48
[2018-03-10 05:36] VITALS: BP 108/59; PULSE 94; RESP 16; TEMP 97.9; O2SAT 98
[2018-03-10] MEDS: LACTOBACILLUS ACIDOPHILUS TAB PO SCH ×2 (08:14→20:50)
[2018-03-10] MEDS: CEFUROXIME AXETIL 500 MG TAB PO SCH ×2 (11:27→22:06)
[2018-03-10] MEDS: hydrOXYzine HCL 50 MG TAB PO PRN ×2 (15:24→22:28)
--- NOTE | 2018-03-10 17:04 | HHI.PYPN ---
Subjective Chief Complaint: Psychosis Remarks Patient seen for follow, chart reviewed. Discussion nursing staff reported the patient was noted to be having odd behavior in the hallway as his exercising, noted to be wrapping. Patient was found in day room eating dinner noted be calm , cooperative seen with nurse. Patient during interview noted to have loosening associations, wrapping at times and noted pressured speech. Patient states that she had been feeling "hyper" but states that her thoughts have been slowing her mind. Patient explains that in the hallway she was doing "maverick chi" after having watched a dizzy film called . Denies any perceptional disturbances, denies any auditory hallucinations continues with disorganized behavior. Review of Systems Except as stated in HPI: all other systems reviewed are Neg Mental Status Examination Appearance: Disheveled Consciousness: Alert Orientation: Person Motor Activity: Normal gait Speech: Pressured, Rapid Language: Other (Rambling) Fund of Knowledge: Inadequate Attention and Concentration: Easily Distracted Memory: Impaired (Psychosis interferes) Mood: Other (Mildly dysphoric) Affect: Labile Thought Process & Associations: Disorganized Thought Content: Hallucinations (Patient denies), Preoccupations, Delusional Hallucination Type: Other (Responding to internal stimuli) Delusion Type: Paranoid, Other (Buddhist, ideas of reference) Suicidal Ideation: No (Unreliable to contract for safety) Suicidal Plan: No Suicidal Intention: No Homicidal Ideation: No (Unreliable to contract for safety) Insight: Poor Judgment: Poor Results Labs Date/Time Source Procedure Growth Status 03/04/18 04:24 Urine Clean Catch Urine Culture - Final Proteus Mirabilis Complete Vitals/IOs Vital Signs Date Time Temp Pulse Resp B/P (MAP) Pulse Ox O2 Delivery O2 Flow Rate FiO2 03/10/18 05:36 97.9 94 16 108/59 (75) 98 Assessment & Plan Problem List: (1) Brief psychotic disorder ICD Codes: F23 - Brief psychotic disorder (2) Cannabis abuse ICD Codes: F12.10 - Cannabis abuse, uncomplicated Assessment & Plan Patient this time continue with disorganized behavior, pressured speech, recently compliant with medications. We will increase risperidone to 1 mg p.o. twice daily for psychosis. Continue recommendations as per primary medical team. Encourage patient to maintain adequate oral hydration. We will continue to monitor mood and behavior. Discharge planning in progress. Justification for Cont. Inpt. At risk of further decompensation a lower level of care. Request HC Surrog/Guard Advoc?: Yes Jeronimo Cary MD Mar 10, 2018 17:04
[2018-03-10 17:30] VITALS: BP 130/79; PULSE 101; RESP 17; TEMP 98.4; O2SAT 98
[2018-03-10] MEDS: risperiDONE ODT 1 MG TAB PO SCH (20:50)
[2018-03-10] MEDS: diphenhydrAMINE HCL 50 MG CAP - HS PRN PO (20:55)
[2018-03-10] MEDS: ACETAMINOPHEN 325 MG TAB PO PRN (23:00)
[2018-03-11] MEDS: ACETAMINOPHEN 325 MG TAB PO PRN (05:44)
[2018-03-11] MEDS: risperiDONE ODT 1 MG TAB PO SCH ×2 (08:29→20:12)
[2018-03-11] MEDS: LACTOBACILLUS ACIDOPHILUS TAB PO SCH ×2 (08:31→20:12)
[2018-03-11] MEDS: CEFUROXIME AXETIL 500 MG TAB PO SCH ×2 (11:00→23:08)
--- NOTE | 2018-03-11 12:55 | HHI.PR ---
Subjective Remarks Follow-up visit presyncopal episode possible vasovagal versus QT prolongation. Patient is and examined today. Reports she is feeling a lot better. States that she does not want to take her antipsychotic medication. States that she was up all night after taking Benadryl and Risperdal. Otherwise, denies pain and discomfort. Denies SOB/ dyspnea. Denies chest pain, palpitations, headaches, dizziness. Denies fevers, chills, n/v/d. Denies dysuria. Reports vaginal discharge that is clear slightly white but not clumping, no odor. Objective Vitals Vital Signs Date Time Temp Pulse Resp B/P (MAP) Pulse Ox O2 Delivery O2 Flow Rate FiO2 03/10/18 17:30 98.4 101 17 130/79 (96) 98 Result Diagram: 03/08/18 1420 03/08/18 1420 Imaging Last Impressions Head CT 02/25/18 0001 Signed Impressions: CONCLUSION: No acute intracranial findings. Objective Remarks GENERAL: This is a well-nourished, well-developed patient, in no apparent distress. SKIN: Warm and dry. HEENT: Normocephalic. Pupils equal round and reactive. Nose without bleeding. Airway patent. NECK: Trachea midline. Carotids without murmur. CARDIOVASCULAR: Regular rate and rhythm without murmurs, gallops, or rubs. RESPIRATORY: Clear to auscultation. Breath sounds equal bilaterally. No wheezes , rales, or rhonchi. GASTROINTESTINAL: Abdomen soft, non-tender, nondistended. Bowel Sounds normoactive x4 MUSCULOSKELETAL: Extremities without clubbing, cyanosis, or edema. NEUROLOGICAL: Awake and alert. Oriented to time, place, person. No focal neuro deficit. Moves all extremities. Normal speech. A/P Assessment and Plan 22-year-old female with a past medical history significant for HPV, frequent urinary tract infections, and recently treated C. difficile who presented to the emergency department accompanied by family with concerns over patient's altered mentation. According to ER documentation patient had apparently been living with a boyfriend in the [facility] for over a month and moved back over in with her grandmother who had noticed patient with erratic behavior. [facility] have been consulted to assist with management of possible UTI. Near syncopal episode Possible vasovagal vs QT prolongation -Patient reports abdominal bloating and gas after drinking milk. She did not feel well and states she made a "big fart" and passed out. -Patient has no medications to cause severe hypotension, bradycardia. -EKG shows sinus bradycardia heart rate of 56, no ST changes noted. -QT 453, QT correction for 444, very slightly prolonged >440 -May need to adjust antipsychotic medications that can cause prolonged QT -Psychiatry have lowered down antipsychotic medication Geodon to 60 mg. Repeat EKG was done, QTC has decreased. -Patient was switched over to Risperdal from Geodon -No episodes of syncope reported Psychotic disorder -Treatment plan per psychiatry -Possible change in psychiatric medication instead of Geodon Urinary tract infection -Patient had a UA completed on 02/25 which was positive for E. coli MDR, and Proteus mirabilis. -Repeat UA positive, started on p.o. Ceftin as well as Pyridium 100 mg every 8 hours -Orr sensitive. Continue Ceftin until completed. History of C. difficile -No diarrhea reported. Continue with Lactinex reduce to daily DVT prophylaxis-ambulation Stable from Hospitalist standpoint. We will sign off. Reconsult as needed. Abraham Stone Mar 11, 2018 12:55
[2018-03-11] MEDS ORDERED: hydrOXYzine HCL 50 MG TAB PO PRN (15:00)
--- NOTE | 2018-03-11 15:01 | HHI.PYPN ---
Subjective Chief Complaint: Psychosis Remarks Patient seen in day room with nurse baxter, chart reviewed, patient complaint medications. Patient states she had difficult time sleeping last night was given Benadryl but had adverse reaction with her. She then received an IM dose of Geodon that helped her sleep. She is compliant with her Resporal at this time. Does deny voices. No states she does not wish to go with her father but going to some sort of a transitional program. We will consider addition of the Invega sustained next 1-2 days Review of Systems Except as stated in HPI: all other systems reviewed are Neg Mental Status Examination Appearance: Disheveled Consciousness: Alert Orientation: Person Motor Activity: Normal gait Speech: Pressured, Rapid Language: Other (Rambling) Fund of Knowledge: Inadequate Attention and Concentration: Easily Distracted Memory: Impaired (Psychosis interferes) Mood: Other (Mildly dysphoric) Affect: Labile Thought Process & Associations: Disorganized Thought Content: Hallucinations (Patient denies), Preoccupations, Delusional Hallucination Type: Other (Responding to internal stimuli) Delusion Type: Paranoid, Other (Muslim, ideas of reference) Suicidal Ideation: No (Unreliable to contract for safety) Suicidal Plan: No Suicidal Intention: No Homicidal Ideation: No (Unreliable to contract for safety) Insight: Poor Judgment: Poor Results Labs Date/Time Source Procedure Growth Status 03/04/18 04:24 Urine Clean Catch Urine Culture - Final Proteus Mirabilis Complete Vitals/IOs Vital Signs Date Time Temp Pulse Resp B/P (MAP) Pulse Ox O2 Delivery O2 Flow Rate FiO2 03/10/18 17:30 98.4 101 17 130/79 (96) 98 Assessment & Plan Problem List: (1) Brief psychotic disorder ICD Codes: F23 - Brief psychotic disorder (2) Cannabis abuse ICD Codes: F12.10 - Cannabis abuse, uncomplicated Assessment & Plan Estimated LOS: days patient's psychosis gradually softening, she showed compliance with medication. For now continue treatment. We will add Atarax to help with sleep if needed Justification for Cont. Inpt. At this time patient would decompensate a place to a lower level of care Discharge Planning To be determined Request HC Surrog/Guard Advoc?: Yes Kentrell Harper MD Mar 11, 2018 15:01
[2018-03-11 15:30] VITALS: BP 131/70; PULSE 96; RESP 18; TEMP 98.3; O2SAT 99
[2018-03-11] MEDS: hydrOXYzine HCL 50 MG TAB PO PRN (23:08)
[2018-03-12 06:03] VITALS: BP 133/70; PULSE 82; RESP 17; TEMP 98.2; O2SAT 100
[2018-03-12] MEDS: LACTOBACILLUS ACIDOPHILUS TAB PO SCH ×2 (09:20→09:21)
[2018-03-12] MEDS: risperiDONE ODT 1 MG TAB PO SCH ×2 (09:20→21:00)
[2018-03-12] MEDS: CEFUROXIME AXETIL 500 MG TAB PO SCH ×2 (11:18→22:29)
--- NOTE | 2018-03-12 16:34 | HHI.PYPN ---
Subjective Chief Complaint: Psychosis Remarks Patient is seen in day room with nurse Leslye, chart reviewed, medications reviewed, patient continues somewhat confused and disoriented stating that it is the medications that are making him more psychotic angry anxious and confused. She tries to manipulate the dosage of the pills and the frequency. Though she asked for some medication last night the med she got she stated gave her "night terrors" he feels her psychosis is resolved and she does not need medication anymore she also stated that when she was home with her mother and she became "psychotic on close to anxious mother give her a little piece of his Xanax pill. For now continue treatment Review of Systems Except as stated in HPI: all other systems reviewed are Neg Mental Status Examination Appearance: Disheveled Consciousness: Alert Orientation: Person Motor Activity: Normal gait Speech: Pressured, Rapid Language: Other (Rambling) Fund of Knowledge: Inadequate Attention and Concentration: Easily Distracted Memory: Impaired (Psychosis interferes) Mood: Other (Mildly dysphoric) Affect: Labile Thought Process & Associations: Disorganized Thought Content: Hallucinations (Patient denies), Preoccupations, Delusional Hallucination Type: Other (Responding to internal stimuli) Delusion Type: Paranoid, Other (Restorationism, ideas of reference) Suicidal Ideation: No (Unreliable to contract for safety) Suicidal Plan: No Suicidal Intention: No Homicidal Ideation: No (Unreliable to contract for safety) Insight: Poor Judgment: Poor Results Labs Date/Time Source Procedure Growth Status 03/04/18 04:24 Urine Clean Catch Urine Culture - Final Proteus Mirabilis Complete Vitals/IOs Vital Signs Date Time Temp Pulse Resp B/P (MAP) Pulse Ox O2 Delivery O2 Flow Rate FiO2 03/12/18 06:03 98.2 82 17 133/70 (91) 100 Assessment & Plan Problem List: (1) Brief psychotic disorder ICD Codes: F23 - Brief psychotic disorder (2) Cannabis abuse ICD Codes: F12.10 - Cannabis abuse, uncomplicated Assessment & Plan Estimated LOS: days patient remained psychotic somewhat delusional, low compliant medications. For now continue treatment Justification for Cont. Inpt. At this time patient would decompensate a place to the lower level of care Discharge Planning To be determined Request HC Surrog/Guard Advoc?: Yes Kentrell Harper MD Mar 12, 2018 16:34
[2018-03-12 17:53] VITALS: BP 124/78; PULSE 91; RESP 18; O2SAT 99
[2018-03-13 06:09] VITALS: BP 94/53; PULSE 82; RESP 18; TEMP 97.9; O2SAT 99
[2018-03-13] MEDS: risperiDONE ODT 1 MG TAB PO SCH ×2 (09:00→09:25)
[2018-03-13] MEDS: LACTOBACILLUS ACIDOPHILUS TAB PO SCH (09:25)
[2018-03-13] MEDS: CEFUROXIME AXETIL 500 MG TAB PO SCH (11:27)
[2018-03-13] MEDS ORDERED: LACT PO (11:40)
[2018-03-13] MEDS ORDERED: RISP1 PO (11:40)
[2018-03-13] MEDS ORDERED: CEFU1TAB20 PO (11:40)
--- NOTE | 2018-03-13 11:43 | HHI.DS ---
Psychiatry Discharge Summary Inpatient Psychiatric care?: Yes Advance Directive: No Reason Not Provided: Due to Patient Condition Mental Health AdvanceDirective: No Health Care Proxy: No Admission Admission Date Feb 25, 2018 at 06:19 Admission Diagnosis: (1) Brief psychotic disorder ICD Code: F23 - Brief psychotic disorder Brief History Ms. Lamas is 22-year-old female with no known past psychiatric history who was brought into the ED by family out of concern for erratic behavior. Reviewing the ED provider notes, it appears the patient was singing to herself and said that her name was Robson. Family was concerned about substance use, namely "ice." Patient's urine toxicology was positive only for cannabinoids. Reviewing the electronic medical record, I see no previous psychiatric contact within our system although the patient does report a remote HBS history to me. Patient seen and examined with nurse Narayan and ulises Lewis. Chart reviewed. Case discussed with nursing staff. Apparently, upon arrival to the unit the patient was spitting in her hands and trying to touch people. She was medicated with Haldol and Benadryl IM per Dr. Harper who admitted the patient. I have discussed the matter with the charge nurse, and the plan is to move the patient to the higher acuity unit which is appropriate given ongoing psychosis. On my examination today, the patient presents as fairly disorganized. She is disheveled. She is responding to internal stimuli. She tells me that she occasionally hears God's voices and "something pulling one way or another way." She endorses recent paranoia. She also endorses ideas of reference and says that "this world is about to go into a new chapter and it is going to be scary." Regarding the incident in which she was spitting into her hands she says "I just feel when I tell the truth in God's voice, when I get the truth from God I have to spit it out." She endorses intermittent suicidal ideation but denies any SI or HI now. Psychiatric interview is somewhat limited because of patient's degree of psychiatric impairment at present. Patient verbalizes no acute physical complaints. Given patient's degree of psychiatric impairment I have obtained collateral information from the patient's grandmother Melissa Bello at number listed in EMR. Grandmother reports that there is no history of diagnosed mental illness in the patient, nor does grandmother know of any history of bizarre behavior prior to presentation here. She does note that the patient's mother has a history of mental illness and is now homeless. Grandmother does suspect patient has been abusing substances and reiterates that patient said that she had been using ice. Grandmother notes that patient's baseline personality as "hot headed." Grandmother is reluctant to act as healthcare surrogate and says that she will have to think about it. This apparently has to do with her previous experience with patient's mother's mental illness. She will get back to me about whether she is willing to act in the role of health care surrogate, although it is not clear that there is anyone else that is able to fill this role. Past psychiatric history: No reported previous psychiatric diagnoses. Not under the care of a psychiatrist presently. Patient reports that she was admitted to [facility] as a teen, although I see no record of this. She denies any history of suicide attempts. Family history: Patient is unsure of family mental health history. Chemical dependency history: Patient reports that she uses cannabis daily. She is unable to tell me if she has received cannabis from a new supplier or in unfamiliar source. She denies any other substance use. Social history: The patient is unable to tell me what her living situation is. She has her GED and attended through the ninth grade. She does not work. She has a boyfriend Milo whom she has known for 8 or 9 months. She has a daughter. She attends the [employer]. No reported access to guns or firearms. Tobacco Use In Past 30 Days: No Tobacco Past 30 Days Alcohol Use: Monthly or Less Hospital Course Patient's hospital course was uneventful, she should be reluctant compliance with medication. Her psychosis gradually diminished very delusional ideation at times persists though she denies suicidality homicidality voices or visions. She has been consistent with her denial of those she states she is willing to continue taking medication as an outpatient she wishes to be discharged to her family today she would like to visit with her child. At this time I feel she is met maximum benefit of this hospitalization thus patient to be discharged today to her father with Rx 1 Bipin follow-up [facility] Results Blood Pressure 94 / 53 Vital Signs Date Time Temp Pulse Resp B/P (MAP) Pulse Ox O2 Delivery O2 Flow Rate FiO2 6/29/18 06:09 97.9 82 18 94/53 (67) 99 Laboratory Results Test 02/26/18 06:51 Cholesterol Level 126 MG/DL (120-200) HDL Cholesterol 52.0 MG/DL (40.0-60.0) Hemoglobin A1c 4.3 % (4.3-6.0) LDL Cholesterol 64 MG/DL (0-99) Triglycerides Level 52 MG/DL (42-150) Summary of Procedures None done Imaging Last Impressions Head CT 02/25/18 0001 Signed Impressions: CONCLUSION: No acute intracranial findings. Pending results at discharge: No Medications # of Antipsychotic meds at D/C: 1 Approp Antipsych med options 1 - Minimum of three failed multiple trials of monotherapy. 2 - Documented plan to taper to monotherapy due to previous use of multiple meds OR cross-taper in progress at D/C. 3 - Documentation of augmentation of Clozapine. 4 - Justification other than those listed in allowable values 1-3, document here : Discharge Discharge Date: Mar 13, 2018 Discharge Diagnosis: (1) Brief psychotic disorder Diagnosis: Principal ICD Code: F23 - Brief psychotic disorder Pt Condition on Discharge: Stable Discharge Disposition: Discharge Home Discharge Instructions Diet Instructions: As Tolerated, No Restrictions Activities you can perform: Regular-No Restrictions Scheduled Appointment: Eloy Hardy Appointment Date: Mar 16, 2018 Appointment Time: 730am Discharge Time > 30 minutes Mental Status Examination Appearance: Disheveled Consciousness: Alert Orientation: Person Motor Activity: Normal gait Speech: Pressured, Rapid Language: Other (Rambling) Fund of Knowledge: Inadequate Attention and Concentration: Easily Distracted Memory: Impaired (Psychosis interferes) Mood: Other (Mildly dysphoric) Affect: Labile Thought Process & Associations: Disorganized Thought Content: Hallucinations (Patient denies), Preoccupations, Delusional Hallucination Type: Other (Responding to internal stimuli) Delusion Type: Paranoid, Other (Oriental Orthodox, ideas of reference) Suicidal Ideation: No (Unreliable to contract for safety) Suicidal Plan: No Suicidal Intention: No Homicidal Ideation: No (Unreliable to contract for safety) Insight: Poor Judgment: Poor Discharge/Advance Care Plan Health Problems: (1) Brief psychotic disorder (2) Cannabis abuse Goals to promote your health * To prevent worsening of your condition and complications * To maintain your health at the optimal level Directions to meet your goals Take your medications as prescribed Follow your dietary instruction Follow activity as directed Keep your appointments as scheduled Take your immunizations and boosters as scheduled If your symptoms worsen call your PCP, if no PCP go to Urgent Care Center or Emergency Room For 07/04 questions related to your inpatient stay or results of tests pending at discharge, please contact Dr. Kentrell Harper at Smoking is Dangerous to Your Health. Avoid second hand smoking Kentrell Harper MD Mar 13, 2018 11:43
== END 2018-03-13 18:00 | disposition home or self-care (01) | DRG 885 ==
LOC: NEPE 22:42 → NEDA 02-25 06:19 → H260 02-25 09:00 → H270 02-25 20:20 → H250 02-27 13:00 → H270 02-28 14:10
PROVIDERS: ADMIT Psychiatry & Neurology Psychiatry; ATTEND Psychiatry & Neurology Psychiatry
DX: F23 Brief psychotic disorder (principal); R00.1 Bradycardia, unspecified; F12.10 Cannabis abuse, uncomplicated; N39.0 Urinary tract infection, site not specified; B96.20 Unspecified Escherichia coli [E. coli] as the cause of diseases classified elsewhere; B96.4 Proteus (mirabilis) (morganii) as the cause of diseases classified elsewhere; R55 Syncope and collapse
CPT/HCPCS: 70450; 80053; 80061; 80307; 81001; 82140; 82607; 82746; 83036; 83735; 84425; 84443; 84703; 85025; 85610; 85652; 85730; 86038; 86592; 87077; 87086; 87186; 87389; 93005; 99285; G0475; G0481; J1200; J1630; J3486; J7030; Q0163